=== PATIENT | female | born 1945 | race Caucasian/White ===

== ENCOUNTER 2020-03-13 09:21 | Outpatient (REF) | payer MEDICARE, SELFPAY ==
[2020-03-13 10:58] LABS: INTERNATIONAL NORM RATIO 1.7 (0.9-1.1); Prothrombin Time 20.1 SEC (10.8-13.0)
== END 2020-03-13 09:22 | disposition home or self-care (01) ==
LOC: HO.LAB 09:21
PROVIDERS: PCP Internal Medicine; Visit Provider Internal Medicine
DX: I48.91 Unspecified atrial fibrillation (principal)
CPT/HCPCS: 36415; 85610

== ENCOUNTER → 2020-03-18 10:48 | Outpatient (BNVA) | payer MEDICARE, SELFPAY | PROVIDERS: PCP Internal Medicine; Referring Provider Internal Medicine; Visit Provider Nurse Practitioner Family | DX: I48.91 Unspecified atrial fibrillation (principal); I45.10 Unspecified right bundle-branch block; R55 Syncope and collapse; I47.1 Supraventricular tachycardia; I10 Essential (primary) hypertension; Z79.01 Long term (current) use of anticoagulants | CPT/HCPCS: 99214 ==

== ENCOUNTER → 2020-03-30 09:16 | Outpatient (REF) | payer MEDICARE, SELFPAY ==
--- NOTE | 2020-03-30 09:20 | ECG_ITS ---
Hook-up date: 2020-03-30 10:22:00 Duration: 28:10:00 Test Indications: UNSPEC AFIB Medications: [id number] QRS complexes 15 Ventricular ectopics which represent <1 % of total QRS comp. 20 Supraventricular ectopics which represent <1 % of total QRS comp. * Paced QRS complexs which represent % of total QRS comp. VENTRICULAR ECTOPY 15 Isolated 0 Bigeminal Cycles 0 Couplets 0 Runs 0 Beats in Runs * Beats LONGEST at * BPM at :: -- * Beats FASTEST at * BPM at :: -- SUPRAVENTRICULAR ECTOPY 20 Isolated 0 Couplets 0 Runs 0 Beats in Runs * Beats LONGEST at * BPM at :: -- * Beats FASTEST at * BPM at :: -- HEART RATES 55 MIN at 23:32:57 2020-03-30 71 AVG 107 MAX at 10:12:03 2020-03-31 LONGEST RR 1.1760 secs at 23:36:02 2020-03-30 S-T LEVELS Channel 1 - 128 mm at 10:22:00 2020-03-30 - 128 mm at 10:22:00 2020-03-30 Channel 2 - 128 mm at 10:22:00 2020-03-30 - 128 mm at 10:22:00 2020-03-30 Channel 3 - 128 mm at 02:94:11 -- - 128 mm at 02:94:11 Basic rhythm Normal sinus rhythm No long pause or profound bradycardia Rare ectopics Patient did not report any symptoms in the diary Referred By: Fanny Castillo Overread By: MERLY CLARK MD
--- NOTE | 2020-03-30 09:20 | CA_ITS ---
Transthoracic Echocardiogram Patient (Last, First, Middle): Iliana Ochoa A Gender: Female Date of : 1945 Age: 74 Procedure Date: 03/30/2020 Procedure Type: Transthoracic Echocardiogram Location: OP Height: 167.64 cm Weight: 74.84 kg BSA: 1.84 m2 Heart Rate: bpm BP: 118 / 60 mmHg [employer] Feeder: NAVEEN Referring MD: Fanny Castillo SERVICE ORDER CLERK-Silvano Symptoms: I49.91 ATRIAL FIBRILATION Study Quality: Fair ECG Rhythm: Sinus Conclusions: - Limited echo. - Normal biventricular function. Findings Left Ventricle Normal left ventricular size and systolic function. There is moderately increased left ventricular wall thickness. The visually estimated ejection fraction is between 60-65%. There is no evidence of regional wall motion abnormalities. Diastolic function is indeterminate on the basis of available data. Spectral Doppler is indicative of an impaired relaxation filling pattern. Right Ventricle Normal right ventricular cavity size and systolic function. Prior Study Comparison No significant change compared to prior study dated: 07/07/2019. Measurements 2D Linear Measurements IVSd: 1.24 0.6-0.9/0.6-1.0 cm LVIDd: 4.57 3.9-5.3/4.2-5.9 cm LVIDd Index: 2.48 2.4-3.2/2.2-3.1 cm/m2 LVIDs: 2.81 2.0-3.6 cm LVPWd: 1.22 0.7-1.1 cm LV Mass: 262.06 67-162/88-224 g LV Mass Index: 142.43 43-95/49-115 g/m2 2D Systolic Function EF 4C: 67.70 >55% EF 2C: 64.30 >55% EF BiP: 66.20 >55% Updated in Other Vendor System with Status of Final Scott Carrillo MD electronically signed on 03/31/2020 11:20:55 AM with status of Final
== END ==
LOC: HO.CARD 09:16
PROVIDERS: Visit Provider Nurse Practitioner Family
DX: I48.91 Unspecified atrial fibrillation (principal)
CPT/HCPCS: 93226; 93308

== ENCOUNTER 2020-04-07 13:24 | Outpatient (REF) | payer MEDICARE, SELFPAY ==
--- NOTE | 2020-04-07 13:28 | MM_ITS ---
EXAMINATION: MM SCREENING DIGITAL BREAST TOMOSYNTHESIS, BILATERAL CLINICAL INFORMATION: Screening. Asymptomatic. COMPARISON: Mammography: 05/14/2019 and studies dating back to 06/09/2010. TECHNIQUE: Digital breast tomosynthesis is performed in both the craniocaudal and mediolateral oblique views along with computer-aided detection (CAD). Synthesized 2D images are generated from the tomosynthesis. FINDINGS: The breasts are extremely dense, which lowers the sensitivity of mammography (ACR BI-RADS breast composition Category d). There are stable postoperative and postradiation changes of the right breast. There are 2 stable regions of architectural distortion within the left breast likely related to previous biopsies. Within the more anterior region of scarring upper outer aspect there is a question of development of calcifications versus tomosynthesis artifact in linear lines which were not definitely seen on prior studies and which do not appear to be typical dystrophic calcifications. MM/MM tomosynthesis screening BI IMPRESSION: Question artifact versus developing calcifications about the region of architectural distortion within the left breast for which spot magnification films in craniocaudal and 90 degree mediolateral views is recommended. ASSESSMENT: BI-RADS 0: Incomplete - Need Additional Imaging Evaluation RECOMMENDATION: 1. Additional views of the left breast. 2. Targeted ultrasound if warranted after review of the additional views. 3. Radiology department staff will contact the patient for additional imaging. This patient's information was entered into a reminder system with a target due date for their next mammogram.
== END 2020-04-07 13:25 | disposition home or self-care (01) ==
LOC: HO.MAMMO 13:24
PROVIDERS: Visit Provider Internal Medicine
DX: Z12.31 Encounter for screening mammogram for malignant neoplasm of breast (principal)
CPT/HCPCS: 77063; 77067

== ENCOUNTER 2020-04-15 12:57 | Outpatient (REF) | payer MEDICARE, SELFPAY ==
--- NOTE | 2020-04-15 13:07 | MM_ITS ---
EXAMINATION: MM DIAGNOSTIC DIGITAL BREAST TOMOSYNTHESIS, LEFT CLINICAL INFORMATION: Question left breast calcifications. COMPARISON: Mammography: 04/07/2020 and studies dating back to 04/14/2011. TECHNIQUE: Digital breast tomosynthesis is performed. 2D images are generated from the tomosynthesis. The following views are obtained: Spot magnification views of the left breast in craniocaudal and 90-degree mediolateral views. FINDINGS: The breasts are extremely dense, which lowers the sensitivity of mammography (ACR BI-RADS breast composition Category d). 2-D images do not demonstrate question calcifications seen on study of 04/07/2020 and these are most likely artifactual in nature from tomosynthesis. The regions of architectural distortion that are present within the left breast are stable. Results are provided to the patient at time of visit by the technologist. MM/MM tomosynthesis added views L IMPRESSION: Stable appearance of the left breast without suspicious calcifications identified. ASSESSMENT: BI-RADS 2: Benign. RECOMMENDATION: Routine annual mammography screening due in 12 months. This patient's information was entered into a reminder system with a target due date for their next mammogram.
== END 2020-04-15 12:58 | disposition home or self-care (01) ==
LOC: HO.MAMMO 12:57
PROVIDERS: PCP Internal Medicine; Visit Provider Internal Medicine
DX: R92.1 Mammographic calcification found on diagnostic imaging of breast (principal); R92.8 Other abnormal and inconclusive findings on diagnostic imaging of breast
CPT/HCPCS: 77061; 77065

== ENCOUNTER → 2020-08-05 12:44 | Outpatient (BNVA) | payer MEDICARE, SELFPAY | PROVIDERS: PCP Internal Medicine; Visit Provider Hospitalist | DX: A31.9 Mycobacterial infection, unspecified (principal); J47.9 Bronchiectasis, uncomplicated; R91.8 Other nonspecific abnormal finding of lung field; J70.1 Chronic and other pulmonary manifestations due to radiation | CPT/HCPCS: 99202 ==

== ENCOUNTER 2020-08-19 08:06 | Outpatient (REF) | payer MEDICARE, SELFPAY ==
--- NOTE | ~2020-08-19 | CT_ITS ---
EXAMINATION: CT CHEST WITHOUT CONTRAST CLINICAL INFORMATION: Nonspecific abnormal lung findings. COMPARISON: None TECHNIQUE: Multidetector volumetric CT imaging of the chest was done. Axial MIP volume rendering provided. Sagittal and coronal reformatted images were obtained. This CT examination was performed using dose optimization techniques as appropriate, variously including the following: *Automated exposure control. *Adjustment of mA and/or kV according to patient size (this includes techniques or standardized protocols for targeted exams where dose is matched to indication/reason for exam; i.e. extremities or head). *Use of iterative reconstruction technique. DLP: 130 mGy-cm FINDINGS: POST EXCHANGE MANAGER: The lungs are hyperinflated without acute process. LUNGS: There is mild apical parenchymal scarring. The lungs are otherwise well expanded and clear of acute process. There is a 3 mm calcified nodule right upper lobe axial image 152/7, a subpleural 5 mm density right upper lobe axial image 152/70, nonspecific nodules measuring 2 mm and 3 mm axial image 206/7, intrabronchial 3 mm lesion or debris right lower lobe axial image 235/7, 5 mm subpleural nodule left upper lobe axial image 239/7, 3 mm intrabronchial debris or nodule right lower lobe axial image 271/7, 2 mm and 3 mm peripheral-based nodules left lower lobe and lingula axial image 327/7, 317/7. There is no acute consolidation or mass seen. MEDIASTINUM: The thyroid lobes are symmetrical and normal. Central trachea and the bronchi are widely patent. Heart size and the great vessels are normal caliber. No pericardial effusion seen. No abnormal size mediastinal or hilar lymph nodes seen. PLEURA: There is no pleural effusion. No pleural mass or thickening. AXILLA: Small shotty lymph nodes seen in the axilla. There is a dense left breast with mild bilateral anterior skin thickening. UPPER ABDOMEN: Visualized liver, spleen, pancreas and bilateral adrenal glands are unremarkable. OSSEOUS STRUCTURES: No lytic or sclerotic process seen. There is mild ventral spondylosis upper and mid dorsal spine. CT/CT chest wo con IMPRESSION: 1. Multiple bilateral pulmonary nodules as described above. There is some intrabronchial debris or nodules visualized. This could be secondary to bronchial inflammatory process. 2. No abnormal mediastinal or axillary lymphadenopathy seen. 3. Dense left breast could be secondary to previous surgical intervention or radiation changes. There is bilateral anterior skin thickening around the areola.
== END 2020-08-19 08:07 | disposition home or self-care (01) ==
LOC: HO.CT 08:06
PROVIDERS: Visit Provider Physician Assistant Medical
DX: R91.8 Other nonspecific abnormal finding of lung field (principal)
CPT/HCPCS: 71250

== ENCOUNTER 2020-09-13 09:54 | Outpatient (REF) | payer MEDICARE, SELFPAY ==
--- NOTE | 2020-09-13 14:27 | PFT_ITS ---
Forced vital capacity and FEV1 are slightly decreased. [id number] also slightly decreased and MVV is normal. Post bronchodilator therapy, there is only minimal improvement in FVC and [id number]. Total lung capacity and residual volume normal. Diffusion capacity moderately decreased. CONCLUSION: There is no evidence of restrictive pulmonary disorder. There is mild small airway obstructive disorder with mild improvement after bronchodilator therapy. Diffusion capacity is moderately decreased somewhat out of proportion to the other findings. This may be due to pulmonary emphysema or presence of nonpulmonary factors. Clinical correlation is recommended. MD ANGELA Hull/MODL / [id number]
== END 2020-09-13 09:55 | disposition home or self-care (01) ==
LOC: HO.RESP 09:54
PROVIDERS: PCP Internal Medicine; Visit Provider Hospitalist
DX: J47.9 Bronchiectasis, uncomplicated (principal)
CPT/HCPCS: 94060; 94727; 94729; 99212

== ENCOUNTER → 2020-10-21 10:46 | Outpatient (BNVA) | payer MEDICARE, SELFPAY | PROVIDERS: PCP Internal Medicine; Visit Provider Hospitalist | DX: J70.1 Chronic and other pulmonary manifestations due to radiation (principal); A31.9 Mycobacterial infection, unspecified; J47.9 Bronchiectasis, uncomplicated; R91.8 Other nonspecific abnormal finding of lung field | CPT/HCPCS: 99212 ==

== ENCOUNTER 2020-11-30 10:15 | Outpatient (REF) | payer MEDICARE, SELFPAY ==
--- NOTE | ~2020-11-30 | MR_ITS ---
EXAMINATION: MR BREAST WITHOUT AND WITH CONTRAST, BILATERAL CLINICAL INFORMATION: Personal history of right breast carcinoma, status post lumpectomy in 2006. COMPARISON: Bilateral mammogram 04/07/2020, bilateral breast MRI 04/14/2011, 10/08/2018 and 04/21/2019 TECHNIQUE: Imaging was performed with a dedicated breast coil. Prior to the administration of contrast, bilateral axial T1 and bilateral axial T2 weighted sequences were obtained. After the uneventful administration of?7 mL of Gadavist, dynamic contrast-enhanced VIBRANT series through the breasts in the axial plane were performed. Subtracted images were performed and reviewed. A delayed sagittal sequence through both breasts was acquired. Additionally, CAD post-processing, including maximum intensity projections, 3-D reconstructions and kinetic analysis, were performed an independent workstation and reviewed by the interpreting radiologist is a portion of this exam. FINDINGS: The breast tissue is composed of heterogeneously dense fibroglandular tissue. There is a greater amount of residual dense fibroglandular tissue present on the left. There is pronounced, prominently progressive type background parenchymal enhancement on the left which is greater than on prior exams. Mild background enhancement is present on the right. LEFT BREAST: There are areas of postsurgical distortion which are stable in appearance. There is a T2 isointense round enhancing nodule in the central breast, middle depth measuring 0.3 cm, unchanged. Areas of patchy nonmasslike enhancement are present on the left which are greater than on the previous exam, however are suggestive of increased parenchymal enhancement. There is no area of enhancement with suspicious kinetics or suspicious morphology. There is no duct dilatation or ductal type enhancement present. No skin thickening is seen. RIGHT BREAST: There are postsurgical changes in the posterior lateral and anteromedial breast. There is no suspicious mass, focal suspicious nonmasslike enhancement, duct dilatation or ductal type enhancement. There has been no interval change. There is no suspicious internal mammary chain or axillary adenopathy. Limited views of the chest and abdomen are unremarkable. MR/MR breast BI wo/w con IMPRESSION: No MR specific evidence of malignancy. Interval increase in left-sided background parenchymal enhancement which has a somewhat patchy appearance. No dominant suspicious area of abnormality is seen on the left. Close interval follow-up on MRI is recommended. ASSESSMENT: LEFT BREAST: BI-RADS 3, probably benign. RIGHT BREAST: BI-RADS 2, benign. RECOMMENDATIONS: Repeat MRI in 6-12 months to assess increasing nonmasslike and background parenchymal enhancement on the left for stability. The patient will be due for bilateral mammogram in March 2020.
[2020-11-30 10:36] LABS: Blood Urea Nitrogen 18 mg/dL (9-16); Estimated Glomerular Filt Rate > 60
== END 2020-11-30 10:16 | disposition home or self-care (01) ==
LOC: HO.MRI 10:15
PROVIDERS: Visit Provider Surgery
DX: C50.911 Malignant neoplasm of unspecified site of right female breast (principal); Z80.3 Family history of malignant neoplasm of breast
CPT/HCPCS: 36415; 77049; 82565; 84520; A9585

== ENCOUNTER → 2020-12-14 09:57 | Outpatient (BNVA) | payer MEDICARE, SELFPAY | PROVIDERS: PCP Internal Medicine; Visit Provider Surgery | DX: C50.911 Malignant neoplasm of unspecified site of right female breast (principal) | CPT/HCPCS: 99212 ==

== ENCOUNTER → 2020-12-16 12:41 | Outpatient (BNVA) | payer MEDICARE, SELFPAY | PROVIDERS: PCP Internal Medicine; Referring Provider Internal Medicine; Visit Provider Internal Medicine Cardiovascular Disease | DX: J70.1 Chronic and other pulmonary manifestations due to radiation (principal); I10 Essential (primary) hypertension; I45.19 Other right bundle-branch block; I48.0 Paroxysmal atrial fibrillation; I47.1 Supraventricular tachycardia; R55 Syncope and collapse; C50.911 Malignant neoplasm of unspecified site of right female breast | CPT/HCPCS: 93005; 99212 ==

== ENCOUNTER 2021-04-20 09:50 | Outpatient (REF) | payer MEDICARE, SELFPAY ==
--- NOTE | ~2021-04-20 | MM_ITS ---
EXAMINATION: MM SCREENING DIGITAL BREAST TOMOSYNTHESIS, BILATERAL CLINICAL INFORMATION: Screening. Asymptomatic. Remote history right lumpectomy for breast cancer, 2008. Benign left excisional biopsy 2008. COMPARISON: Mammography: 04/15/2020, 04/07/2020, 05/14/2019, 08/19/2018, 07/23/2017, MRI breasts 11/30/2020. TECHNIQUE: Digital breast tomosynthesis is performed in both the craniocaudal and mediolateral oblique views along with computer-aided detection (CAD). Synthesized 2D images are generated from the tomosynthesis. Additional exaggerated right CC view is provided. FINDINGS: The breasts are heterogeneously dense, which may obscure small masses (ACR BI-RADS breast composition Category c). Parenchymal pattern is similar to prior studies. There is no developing density or interval mass. Old scarring again noted anterior left breast. There are 2 biopsy clip markers again seen left breast central mid 3:00 and anterior inferior medial quadrant. There are post lumpectomy changes again seen on the right with reduced breast size and mild scarring and old dystrophic calcifications. No significant changes. MM/MM tomosynthesis screening BI IMPRESSION: No significant changes from prior studies. ASSESSMENT: BI-RADS 2: Benign RECOMMENDATION: Routine annual mammography screening. Comment: MR exam 11/30/2020 recommends repeat breast MRI in 6-12 months to assess probable benign non masslike and background parenchymal enhancement on the left for stability. This patient's information was entered into a reminder system with a target due date for their next mammogram.
== END 2021-04-20 09:51 | disposition home or self-care (01) ==
LOC: HO.MAMMO 09:50
PROVIDERS: Visit Provider Internal Medicine
DX: Z12.31 Encounter for screening mammogram for malignant neoplasm of breast (principal)
CPT/HCPCS: 77063; 77067

== ENCOUNTER → 2021-04-28 10:39 | Outpatient (BNVA) | payer MEDICARE, SELFPAY | PROVIDERS: PCP Internal Medicine; Visit Provider Hospitalist | DX: J70.1 Chronic and other pulmonary manifestations due to radiation (principal); J47.9 Bronchiectasis, uncomplicated; R91.8 Other nonspecific abnormal finding of lung field; A31.9 Mycobacterial infection, unspecified | CPT/HCPCS: 99212 ==

== ENCOUNTER 2021-05-09 13:52 | Outpatient (REF) | payer MEDICARE, SELFPAY | END 2021-05-09 13:53 | disposition home or self-care (01) | LOC: HO.LNP 13:52 | PROVIDERS: Visit Provider Hospitalist | DX: A31.9 Mycobacterial infection, unspecified (principal); J47.9 Bronchiectasis, uncomplicated | CPT/HCPCS: 87070; 87116; 87205 ==

== ENCOUNTER 2021-05-27 10:29 | Outpatient (REF) | payer MEDICARE, SELFPAY ==
[2021-05-27 11:28] LABS: Blood Urea Nitrogen 15 mg/dL (9-16); Estimated Glomerular Filt Rate > 60
== END 2021-05-27 10:30 | disposition home or self-care (01) ==
LOC: HO.LAB 10:29
PROVIDERS: PCP Internal Medicine; Visit Provider Surgery
DX: C50.911 Malignant neoplasm of unspecified site of right female breast (principal); Z80.3 Family history of malignant neoplasm of breast
CPT/HCPCS: 36415; 82565; 84520

== ENCOUNTER 2021-05-30 09:25 | Outpatient (REF) | payer MEDICARE, SELFPAY ==
--- NOTE | ~2021-05-30 | MR_ITS ---
EXAMINATION: MR BREAST WITHOUT AND WITH CONTRAST, BILATERAL CLINICAL INFORMATION: High-risk screening. History of right breast cancer status post lumpectomy. History of left breast excisional biopsy. COMPARISON: MRI 11/30/2020, 04/21/2019 TECHNIQUE: Imaging was performed with a dedicated breast coil. Prior to the administration of contrast, bilateral axial T1 and bilateral axial T2 weighted sequences were obtained. After the uneventful administration of?7 mL of Gadavist, dynamic contrast-enhanced VIBRANT series through the breasts in the axial plane were performed. Subtracted images were performed and reviewed. A delayed sagittal sequence through both breasts was acquired. Additionally, CAD post-processing, including maximum intensity projections, 3-D reconstructions and kinetic analysis, were performed an independent workstation and reviewed by the interpreting radiologist is a portion of this exam. FINDINGS: The patient's fibroglandular tissue demonstrates moderate background enhancement. LEFT BREAST: Biopsy clip artifact with associated nonmass enhancement at 6:00 position of the mid left breast is less conspicuous compared to the prebiopsy imaging can system the benign biopsy result. Stable left lateral nipple deviation and postexcisional changes. No new suspicious masslike or non-masslike enhancement. No abnormal skin thickening or nipple retraction. No abnormal architectural distortion. Review of the T2 weighted images demonstrates no fibrocystic changes or dilated ducts. Review of kinetic images reveals no additional findings. RIGHT BREAST: Stable architectural distortion in the upper inner quadrant of the site of previous lumpectomy. Stable anterior skin thickening. No suspicious masslike or non-masslike enhancement. No abnormal skin thickening or nipple retraction. No abnormal architectural distortion. Review of the T2 weighted images demonstrates no fibrocystic changes or dilated ducts. Review of kinetic images reveals no additional findings. There is no suspicious internal mammary chain or axillary adenopathy. Limited views of the chest and abdomen are unremarkable. MR/MR breast BI wo/w con IMPRESSION: No MR specific evidence of malignancy. ASSESSMENT: LEFT BREAST: BI-RADS 2 - Benign Findings. RIGHT BREAST: BI-RADS 2 - Benign Findings. RECOMMENDATIONS: Clinical follow-up. Continued annual mammographic surveillance. Further breast MRI as risk factors dictate.
== END 2021-05-30 09:26 | disposition home or self-care (01) ==
LOC: HO.MRI 09:25
PROVIDERS: Visit Provider Surgery
DX: C50.911 Malignant neoplasm of unspecified site of right female breast (principal); Z80.3 Family history of malignant neoplasm of breast
CPT/HCPCS: 77049; A9585

== ENCOUNTER → 2021-06-23 08:44 | Outpatient (BNVA) | payer MEDICARE, SELFPAY | PROVIDERS: PCP Internal Medicine; Visit Provider Surgery | DX: I48.0 Paroxysmal atrial fibrillation (principal); I47.1 Supraventricular tachycardia; R55 Syncope and collapse; C50.911 Malignant neoplasm of unspecified site of right female breast | CPT/HCPCS: 99212 ==

== ENCOUNTER 2021-07-05 14:12 | Outpatient (REF) | payer MEDICARE, SELFPAY ==
--- NOTE | ~2021-07-05 | MM_ITS ---
EXAMINATION: BONE DENSITOMETRY CLINICAL INDICATION: Osteoporosis. COMPARISON: Previous BD dated 04/13/2017, spine and baseline BD dated 04/05/2010. TECHNIQUE: Using a [employer] DXA System (software version: 13.1) manufactured by [employer], dual-energy x-ray absorptiometry was performed of the lumbar spine and right hip. The images are of good technical quality. Summary results are attached. FINDINGS: AP SPINE L1-L4: Current: BMD 1.279 g/cm2, Z-score 2.3, T-score 0.8, normal, 9.1% increase from previous, 3.5% increase from baseline (<5% change is not significant). Prior: BMD 1.172 g/cm2. Baseline: BMD 1.236 g/cm2. RIGHT FEMUR, NECK: Current: BMD 0.976 g/cm2, Z-score 1.3, T-score -0.4, normal. Baseline: BMD 0.884 g/cm2. RIGHT FEMUR, TOTAL: Current: BMD 0.954 g/cm2, Z-score 1.2, T-score -0.4, normal, 3.0% increase from baseline (<5% change is not significant). Baseline: BMD 0.926 g/cm2. IDENTIFIED RISK FACTORS: Early menopause, secondary osteoporosis. HISTORY OF FRACTURE: None listed. MEDICATIONS: Vitamin D. MM/XR DEXA axial skeleton IMPRESSION: 1. DIAGNOSIS: Normal bone density based on the lowest T-score value of -0.4 in the femoral neck and total femur applying World Health Organization criteria. 2. 10-YEAR FRACTURE RISK PREDICTION, FRAX: Major osteoporotic fracture (clinical spine, forearm, hip or shoulder) 8.6%. Hip fracture 1.0%. 3. Treatment Recommendations: NOF guidelines recommend consideration for treatment in postmenopausal women and men age 50 and older presenting with the following: -A hip or vertebral (clinical or morphometric) fracture. -T-score less than or equal to -2.5 at the femoral neck or spine after appropriate evaluation to exclude secondary causes. -Low bone mass at the hip or spine and a 10-year fracture probability by FRAX of greater than or equal to 3% for hip fracture or greater than or equal to 20% for major osteoporotic fracture based on the [place] adapted WHO algorithm. 4. Other Recommendations: All treatment decisions require clinical judgment and consideration of individual patient factors, including patient preferences, comorbidities, previous drug use, risk factors not captured in the FRAX model (e.g. frailty, falls, vitamin D deficiency, increased bone turnover, interval significant decline in bone density) and possible under or overestimation of fracture risk by FRAX. FUTURE SCAN RECOMMENDATION: People with diagnosed cases of osteoporosis or at high risk for fracture should have regular bone mineral density tests. For patients eligible for Medicare, routine testing is allowed once every 2 years. The testing frequency can be increased to one year for patients who have rapidly progressing disease, those who are receiving or discontinuing medical therapy to restore bone mass, or have additional risk factors.
== END 2021-07-05 14:13 | disposition home or self-care (01) ==
LOC: HO.MAMMO 14:12
PROVIDERS: Visit Provider Internal Medicine
DX: Z13.820 Encounter for screening for osteoporosis (principal); M81.6 Localized osteoporosis [Lequesne]; Z78.0 Asymptomatic menopausal state; Z79.899 Other long term (current) drug therapy
CPT/HCPCS: 77080

== ENCOUNTER 2021-08-11 10:36 | Outpatient (REF) | payer MEDICARE, SELFPAY ==
--- NOTE | ~2021-08-11 | CT_ITS ---
EXAMINATION: CT CHEST WITHOUT CONTRAST CLINICAL INFORMATION: Follow-up pulmonary nodules and bronchiectasis COMPARISON: Previous chest CT most recent August 2020 TECHNIQUE: Multidetector volumetric CT imaging of the chest was done. Axial MIP volume rendering provided. Sagittal and coronal reformatted images were obtained. This CT examination was performed using dose optimization techniques as appropriate, variously including the following: *Automated exposure control *Adjustment of mA and/or kV according to patient size (this includes techniques or standardized protocols for targeted exams where dose is matched to indication/reason for exam; i.e. extremities or head) *Use of iterative reconstruction technique DLP: 128 mGy-cm FINDINGS: LUNGS: There is biapical pleural parenchymal scarring. There is bilateral upper lobe and right middle lobe bronchiectasis, bronchial wall thickening and bronchial soft tissue opacification or mucus plugging. This appears increased in the anterior segment of the left upper lobe where there are new pulmonary nodules, largest measuring 5 mm nodule axial image 279 series 5. There are mild changes of airways disease seen in the lateral segment of the right lower lobe as well. There are increased peripheral reticular markings seen in the anterior right upper and right middle lobes probably related to previous chest wall radiation. MEDIASTINUM: There is a trace pericardial effusion that is stable. The mediastinum is otherwise normal. The mediastinum is normal. PLEURA: There is no pleural effusion. No pleural mass or thickening. AXILLA: No enlarged lymph nodes or chest wall mass is seen. There is skin thickening of the right breast that appears unchanged. UPPER ABDOMEN: Unremarkable. OSSEOUS STRUCTURES: There are degenerative changes of the spine. CT/CT chest wo con IMPRESSION: Increasing airways disease seen in the anterior left upper lobe. Otherwise no change from August 2020 exam. Fleischner guidelines were followed.
== END 2021-08-11 10:37 | disposition home or self-care (01) ==
LOC: HO.CT 10:36
PROVIDERS: PCP Internal Medicine; Visit Provider Hospitalist
DX: R91.8 Other nonspecific abnormal finding of lung field (principal); J47.9 Bronchiectasis, uncomplicated; C50.911 Malignant neoplasm of unspecified site of right female breast
CPT/HCPCS: 71250

== ENCOUNTER → 2021-09-21 09:59 | Outpatient (BNVA) | payer MEDICARE, SELFPAY | PROVIDERS: PCP Internal Medicine; Visit Provider Hospitalist | DX: J70.1 Chronic and other pulmonary manifestations due to radiation (principal); J47.9 Bronchiectasis, uncomplicated; R91.8 Other nonspecific abnormal finding of lung field; A31.9 Mycobacterial infection, unspecified | CPT/HCPCS: 99212 ==

== ENCOUNTER → 2021-12-29 09:25 | Outpatient (BNVA) | payer MEDICARE, SELFPAY | PROVIDERS: PCP Internal Medicine; Referring Provider Internal Medicine; Visit Provider Internal Medicine Cardiovascular Disease | DX: I48.0 Paroxysmal atrial fibrillation (principal); Z79.01 Long term (current) use of anticoagulants; Z45.018 Encounter for adjustment and management of other part of cardiac pacemaker | CPT/HCPCS: 93280; 99212 ==

== ENCOUNTER 2022-03-27 08:51 | Outpatient (REF) | payer MEDICARE, SELFPAY ==
--- NOTE | 2022-03-27 16:28 | PFT_ITS ---
FLOWS: FEV1 77% of predicted at 1.75 L. FVC 82% of predicted at 2.48 L. FEV1 to FVC ratio of 0.71. No bronchodilator response. LUNG VOLUMES: Total lung capacity 83% of predicted at 4.69 L. Residual volume 94% of predicted at 2.28 L. Slow vital capacity 81% of predicted at 2.41 L. Expiratory reserve volume 37% of predicted at 0.26 L. Diffusion capacity is mildly decreased. IMPRESSION: No obstructive nor restrictive ventilatory defect. No bronchodilator response. Decreased diffusion capacity suggests emphysema. Guru Verdin MD AP/MODL / [id number]
== END 2022-03-27 08:52 | disposition home or self-care (01) ==
LOC: HO.RESP 08:51
PROVIDERS: PCP Internal Medicine; Visit Provider Hospitalist
DX: J47.9 Bronchiectasis, uncomplicated (principal)
CPT/HCPCS: 94060; 94727; 94729

== ENCOUNTER → 2022-04-19 09:48 | Outpatient (BNVA) | payer MEDICARE, SELFPAY | PROVIDERS: PCP Internal Medicine; Visit Provider Hospitalist | DX: J70.1 Chronic and other pulmonary manifestations due to radiation (principal); A31.9 Mycobacterial infection, unspecified; J47.9 Bronchiectasis, uncomplicated; R91.8 Other nonspecific abnormal finding of lung field; Z85.3 Personal history of malignant neoplasm of breast; Z92.3 Personal history of irradiation | CPT/HCPCS: 99212 ==

== ENCOUNTER 2022-05-09 10:32 | Outpatient (REF) | payer MEDICARE, SELFPAY ==
--- NOTE | ~2022-05-09 | MM_ITS ---
EXAMINATION: MM SCREENING DIGITAL BREAST TOMOSYNTHESIS, BILATERAL CLINICAL INFORMATION: Screening. Asymptomatic. Right lumpectomy for breast cancer, 2009. Benign left excisional biopsy, 2008. COMPARISON: Mammography: 04/20/2021, 04/15/2020, 04/07/2020, 05/14/2019, 08/19/2018; MRI breasts 05/30/2021. TECHNIQUE: Digital breast tomosynthesis is performed in both the craniocaudal and mediolateral oblique views along with computer-aided detection (CAD). Synthesized 2D images are generated from the tomosynthesis. FINDINGS: The breasts are heterogeneously dense, which may obscure small masses (ACR BI-RADS breast composition Category c). Parenchymal pattern is similar to prior studies. There are postsurgical changes on the right with mild reduced breast size and some scattered regional dystrophic calcifications upper outer quadrant and right axillary clips. Left breast has 2 biopsy clip markers mid central 3:00 and lower inner anterior breast. There is a small stable circumscribed nodule again seen mid 8:00 left breast. There is no significant mass or developing density or architectural abnormality. No abnormal calcifications. Pacemaker generator overlies and partly obscures left axilla on MLO view. No significant changes. MM/MM tomosynthesis screening BI IMPRESSION: No significant changes from prior studies. ASSESSMENT: BI-RADS 2: Benign RECOMMENDATION: Routine annual mammography screening. This patient's information was entered into a reminder system with a target due date for their next mammogram.
== END 2022-05-09 10:33 | disposition home or self-care (01) ==
LOC: HO.MAMMO 10:32
PROVIDERS: PCP Internal Medicine; Visit Provider Internal Medicine
DX: Z12.31 Encounter for screening mammogram for malignant neoplasm of breast (principal)
CPT/HCPCS: 77063; 77067

== ENCOUNTER → 2022-06-27 08:50 | Outpatient (BNVA) | payer MEDICARE, SELFPAY | PROVIDERS: PCP Internal Medicine; Referring Provider Internal Medicine; Visit Provider Surgery | DX: C50.911 Malignant neoplasm of unspecified site of right female breast (principal) | CPT/HCPCS: 99212 ==

== ENCOUNTER → 2022-07-03 09:14 | Outpatient (BNVA) | payer MEDICARE, SELFPAY | PROVIDERS: PCP Internal Medicine; Referring Provider Internal Medicine; Visit Provider Internal Medicine Cardiovascular Disease | DX: I47.1 Supraventricular tachycardia (principal); I48.0 Paroxysmal atrial fibrillation; Z95.0 Presence of cardiac pacemaker | CPT/HCPCS: 93005; 93280; 99212 ==

== ENCOUNTER 2022-09-26 09:59 | Outpatient (REF) | payer MEDICARE, SELFPAY ==
--- NOTE | ~2022-09-26 | CT_ITS ---
EXAMINATION: CT CHEST WITHOUT CONTRAST CLINICAL INFORMATION: Bronchiectasis COMPARISON: Previous chest CT most recent August 2021 TECHNIQUE: Multidetector volumetric CT imaging of the chest was done. Axial MIP volume rendering provided. Sagittal and coronal reformatted images were obtained. This CT examination was performed using dose optimization techniques as appropriate, variously including the following: *Automated exposure control *Adjustment of mA and/or kV according to patient size (this includes techniques or standardized protocols for targeted exams where dose is matched to indication/reason for exam; i.e. extremities or head) *Use of iterative reconstruction technique DLP: 126 mGy-cm FINDINGS: FLOOR CLERK: LUNGS: There is mild biapical pleural parenchymal scarring. There is scattered areas of bronchiectasis, greatest in the right middle and right upper lobes. There is bronchial soft tissue opacification plugging seen in the right middle lobe. This does not appear appreciably changed. There are increased clustered peribronchial nodules seen in the anterior segment of the left upper lobe peripheral lateral left lower lobe. There are numerous additional areas of small scattered peribronchial nodules that are otherwise unchanged. No suspicious pulmonary nodule. No endotracheal or central endobronchial lesion. MEDIASTINUM: Normal heart size. Trace pericardial effusion that is stable. No enlarged hilar or mediastinal lymph nodes. Normal caliber thoracic aorta. CORONARY ARTERY CALCIFICATION: None visualized on this study. PLEURA: There is no pleural effusion. No pleural mass or thickening. AXILLA: No enlarged axillary lymph nodes. Stable postsurgical changes to the right breast. Asymmetric increased density of the left breast compared to the right similar to previous exams. New left subclavian dual chamber pacemaker. UPPER ABDOMEN: Unremarkable. OSSEOUS STRUCTURES: Degenerative changes of the spine. CT/CT chest wo IV con IMPRESSION: Stable bronchiectasis, bronchial soft tissue opacification or mucus plugging, greatest in the right middle and upper lobes. Slight interval increase in peribronchial nodules in the left lung. New left subclavian chamber pacemaker. Fleischner guidelines were followed.
== END 2022-09-26 10:00 | disposition home or self-care (01) ==
LOC: HO.CT 09:59
PROVIDERS: PCP Internal Medicine; Visit Provider Hospitalist
DX: J47.9 Bronchiectasis, uncomplicated (principal)
CPT/HCPCS: 71250

== ENCOUNTER → 2022-10-23 13:51 | Outpatient (BNVA) | payer MEDICARE, SELFPAY | PROVIDERS: PCP Internal Medicine; Visit Provider Hospitalist | DX: J70.1 Chronic and other pulmonary manifestations due to radiation (principal); J47.9 Bronchiectasis, uncomplicated; R91.8 Other nonspecific abnormal finding of lung field; U09.9 Post COVID-19 condition, unspecified; A31.9 Mycobacterial infection, unspecified | CPT/HCPCS: 99212 ==

== ENCOUNTER → 2022-12-14 08:34 | Outpatient (REF) | payer MEDICARE, SELFPAY | LOC: HO.CARD 08:34 | PROVIDERS: PCP Internal Medicine; Visit Provider Internal Medicine Cardiovascular Disease | DX: I48.0 Paroxysmal atrial fibrillation (principal) | CPT/HCPCS: 93306; 93356 ==

== ENCOUNTER 2022-12-28 08:35 | Outpatient (AMB) | payer MEDICARE, SELFPAY ==
--- NOTE | 2022-12-28 08:43 | A.OFFVIS_ITS ---
Intake Vital Signs 12/28/22 08:44 Height 5 ft 6 in Weight 156 lb 8.451 oz BMI 25.3 BP 118/76 Blood Pressure Location Lt brachial Position Sitting Pulse 70 Intake Visit Reasons: 6 month f/u w/pacer check Intake Note: 6 month follow-up with pacer check has coronary CTA this afternoon Sanitation Manager Required: No Allergies lisinopril Allergy (Intermediate, Verified 10/23/22 14:03) cough Sulfa (Sulfonamide Antibiotics) Allergy (Intermediate, Verified 10/23/22 14:03) hives/swelling trimethoprim Allergy (Intermediate, Verified 10/23/22 14:03) RASH codeine Allergy (Mild, Verified 10/23/22 14:03) HEADACHES, headache Gadolinium-Containing Contrast Medi [Gadolinium-Containing Agents] Allergy (Mild, Verified 10/23/22 14:03) 14cc of Multihance meperidine Adverse Reaction (Mild, Verified 10/23/22 14:03) NAUSEA/VOMITING Latex Gloves Allergy (Intermediate, Uncoded 10/23/22 14:03) hives Medication List - Last Reconciled 12/28/22 by Piyush Vilchis MD apixaban 5 mg PO BID atorvastatin 20 mg PO DAILY benzonatate 200 mg PO BID PRN 30 days cholecalciferol (vitamin D3) 25 mcg PO DAILY escitalopram oxalate 10 mg PO DAILY losartan 100 mg PO DAILY omeprazole 20 mg PO DAILY propranolol ER 80 mg PO DAILY vitamins A,C,Z-kfby-waqrnt 4,296 mcg-226 mg-90 mg (PreserVision AREDS) 1 cap PO BID HPI HPI Comments History of Present Illness Details Iliana comes for follow-up. Recent echocardiogram concerning for possible septal puncture of the RV lead. She has been evaluated by EPS and is to undergo CT scan today. There is been no change in her pacemaker function. She says she still feels some episode of atrial fibrillation although there is no correlation to the pacer telemetry. She is very active. Denies any other cardiac symptoms. Denies any shortness of breath, orthopnea, PND. No bleeding issues or neurologic events. Can use to exertional shortness of breath that is unchanged. No orthopnea, PND. 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) History of total right hip replacement (11/02/21) Hx of knee surgery (~2010) Family History Father Cancer Afib Mother Cancer HOCM (hypertrophic obstructive cardiomyopathy) Social History Household Members: Family Housing: House Alcohol intake: current Alcohol intake frequency: a few times a week Alcohol type: wine Patient Tobacco Use Status: Never used Tobacco Review of Systems Const Denies chills, Denies fatigue, Denies fever(s), Denies frequent falls, Denies weakness, Denies weight gain and Denies weight loss ENT Denies dizziness Card Denies chest pain, Denies leg edema, Denies lightheadedness, Denies palpitations, Denies dyspnea, Denies dyspnea on exertion, Denies orthopnea and Denies other (loss of consciousness) Resp Denies cough, Denies dyspnea and Denies dyspnea on exertion GI Denies hematochezia and Denies change in stool character Musc Denies abnormal gait, Denies muscle weakness, Denies numbness, Denies radiating pain into limb and Denies tingling Neuro Denies abnormal gait, Denies dizziness, Denies frequent falls, Denies numbness, Denies tingling and Denies weakness Endo Denies fatigue and Denies palpitations Physical Exam Vital Signs: Last Vital Signs Pulse 70 12/28/22 08:44 BP 118/76 12/28/22 08:44 BMI result Body Mass Index 25.3 Const General: cooperative, comfortable, no acute distress, alert, awake and well groomed Nutritional Appearance: average body habitus Orientation/consciousness: patient oriented x3 Limitations: no limitations Neck Neck: Yes trachea midline, Yes supple and Yes no JVD Chest Chest palpation & inspection: other (Pacemaker pocket is benign) Resp Effort & Inspection: normal respiratory effort Auscultation: clear to auscultation bilaterally and diminished lung sounds on the right throughout Cardio Jugular venous distension: no JVD Palpation: normal PMI Rate: regular rate Rhythm: regular rhythm Heart sounds: S1 normal heart sound present and S2 normal heart sound present GI Auscultation: normal bowel sounds Skin General skin exam: no rashes or lesions noted Neuro General: patient oriented x3 and no focal motor deficits Extrem General: Yes no clubbing, cyanosis or edema Office Procedures Cardiac Device Check Cardiac Device Check Details: Dual-chamber Medtronic pacemaker in place. Programmed in MVP mode with rate drop response. Right ventricular lead impedance is stable and in normal range. RV pacing thresholds excellent and reprogrammed to enhance battery life. Right atrial pacing thresholds excellent and reprogrammed to enhance battery life. Right atrial pacing lead impedance is also stable and in normal range. No arrhythmias detected. Atrial ventricular sensing is adequate. Battery life is excellent. [id number]-[id number] Cardiac Device Check, pacemaker dual lead Procedure code (CPT) selection complete Assessment & Plan Assessment & Plan (1) Paroxysmal atrial fibrillation: Comment: No prior history of atrial fibrillation. She underwent a total hip replacement on 02/10 and was discharged on 02/11. That evening she had a syncopal event, EMS was called. Her EKG showed atrial fibrillation with rapid ventricular response. She was managed medically and converted to normal sinus rhythm. She was started on anticoagulation discharged the following day. She has had no known recurrence of atrial fibrillation. She denies any chest pains or heart palpitations. Chads Vasc score of 3 with age, female, hypertension. She is now on Eliquis for anticoagulation. She continues on her usual propanolol which was not changed in the setting of the AFib. Will order Holter monitor to assess for recurrence of AFib or other arrhythmia. Since she had no warning prior to her syncopal event will check a limited echo to reassess EF. Last echo done 07/07/2019 shows EF 60-65%, mild AR, mild MR, [id number] TR. preop nuclear stress test done 01/21/2020 shows no ischemia, EF greater than 75%. Emergency care if she has any syncopal events Code(s): I48.0 - Paroxysmal atrial fibrillation Plan: Patient with paroxysmal atrial fibrillation without any obvious significant recurrence noted. Doing well from cardiac perspective. Continue full oral anticoagulation, currently on Eliquis 5 mg b.i.d.. Semi annual renal function test should be pursued. Continue aggressive blood pressure control which is currently well optimized. Recent echocardiogram shows preserved LV systolic function. (2) Cardiac pacemaker in situ: Comment: Dual-chamber Medtronic pacemaker placed in October of 2021 for post hip surgery sinus pause Code(s): Z95.0 - Presence of cardiac pacemaker Plan: Cardiac pacemaker in-situ for postoperative sinus pause. She had left bundle- branch block pacing done on the interventricular septum and there is concern for lead perforation through the interventricular septum. Although pacemaker function appears normal and the lead impedance is within normal limits, could be side lobe artefact on echocardiogram. She is scheduled to undergo CT scan of the chest today. Will follow-up with the results. Will continue monitor remotely every 3 months. (3) Vasovagal syncope: Comment: history of vasovagal syncope with symptoms prior to events. Now with syncopal event as above with no warning sign. Updating echocardiogram and Holter Code(s): R55 - Syncope and collapse Plan: Prior history of vasovagal syncope with current pacemaker setting on a rate drop response. He she has not had any significant symptoms. Continue maintain adequate hydration. Continue propranolol therapy. Avoid triggering symptoms. Will follow up in the clinic in 6 months time, sooner p.r.n.. Thank you for allowing me to partake in her care Coding Level of Care Code Est Pt Level 4 (83099) Diagnoses Paroxysmal atrial fibrillation I48.0 Cardiac pacemaker in situ Z95.0 Vasovagal syncope R55 CPT Codes Cardiac Device Check - Cardiac Device 2: [id number] Cardiac Device Check, pacemaker dual lead ([id number])
[2022-12-28 08:44] VITALS: BP 118/76; PULSE 70; BMI 25.3
== END 2022-12-28 09:01 | disposition home or self-care (01) ==
PROVIDERS: Visit Provider Internal Medicine Cardiovascular Disease
DX: I48.0 Paroxysmal atrial fibrillation (principal); Z95.0 Presence of cardiac pacemaker; R55 Syncope and collapse
CPT/HCPCS: 93280; 99214

== ENCOUNTER → 2022-12-28 08:35 | Outpatient (BNVA) | payer MEDICARE, SELFPAY | PROVIDERS: Visit Provider Internal Medicine Cardiovascular Disease | DX: Z45.018 Encounter for adjustment and management of other part of cardiac pacemaker (principal); I48.0 Paroxysmal atrial fibrillation; R55 Syncope and collapse | CPT/HCPCS: 93280; 99212 ==

== ENCOUNTER 2023-02-02 12:51 | Outpatient (AMB) | payer MEDICARE, SELFPAY ==
[2023-02-02 12:58] VITALS: BP 128/60; PULSE 69; O2SAT 96; BMI 25.3
--- NOTE | 2023-02-02 12:58 | A.OFFVIS_ITS ---
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 Allergies lisinopril Allergy (Intermediate, Verified 02/02/23 13:01) cough Sulfa (Sulfonamide Antibiotics) Allergy (Intermediate, Verified 02/02/23 13:01) hives/swelling trimethoprim Allergy (Intermediate, Verified 02/02/23 13:01) RASH codeine Allergy (Mild, Verified 02/02/23 13:01) HEADACHES, headache Gadolinium-Containing Contrast Medi [Gadolinium-Containing Agents] Allergy (Mild, Verified 02/02/23 13:01) 14cc of Multihance meperidine Adverse Reaction (Mild, Verified 02/02/23 13:01) NAUSEA/VOMITING Latex Gloves Allergy (Intermediate, Uncoded 02/02/23 13:01) hives HPI HPI Comments History of Present Illness Details The patient is a 77-year-old woman with a known history of breast cancer status post radiation in addition to non tuberculosis mycobacteria infection and also history of bronchiectasis. She has also had pulmonary nodules. For the last several years she has been taking care of her who had been very ill for many years. Ultimately went on hospice care and he did pass away the end of May of 2020. In the meantime sometime in the fall of she did have a hip replacement. The surgery very well and she recovered very well. Unfortunately, when she went home she went to the bathroom at night and she felt well initially but then she syncopized hurting her head and causing her to have a laceration on her head. As part of workup at [facility] she did have a CT scan of the chest. It appeared that she did have the underlying bronchiectasis in the radiation noted before. However, they also documented a 1 cm nodular density in the right hemithorax. We were able to look back at previous CT scans that she has had back in 2016 at [facility] where that nodular density was not present. It may be indeed some mucus plugging due to her significant bronchiectasis. However, a CT scan will be warranted at this time. In the meantime she does complaint of increasing cough with some chest congestion. She is not using any maintenance inhalers at this time. She is also complaining of a postnasal drip. The patient also may indeed have some allergies. Will treat her postnasal drip with fluticasone in addition to having her continue her short-acting beta agonist as needed. However will hold off in additional medicine to she undergoes her CT scan of the chest and also pulmonary function studies. 10/09/2020 the patient is here for pulmonary follow-up visit. Overall she is doing well. Denies any significant coughing or shortness of breath. We did review again her CT scan from [facility] back in the fall of 2019 demonstrating a nodular density in the right middle lobe area. She also had bronchiectatic changes that were consistent with her non tuberculosis mycobacteria infection. Therefore, she did have a repeat CT scan of the chest and we reviewed it as well. It appeared that the right middle lobe nodular density resolved likely from mucus plugging. 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 The patient also underwent pulmonary function studies which were reassuring without any obstructive nor restrictive ventilatory defects. However, she did have a moderate diffusion impairment out of proportion to her findings of the CT scan. Therefore she is to continue her respiratory therapy but adding CPT with a flutter valve and hypertonic saline via nebulizer may be helpful in improving her gas exchange at this time. 10/21/2020 the patient is here for pulmonary follow-up visit. She did try the CPT with hypertonic saline but only resulted in worsening symptoms. After several days of using it she decided to stop it because of his breathing was getting worse. When she stop that she was back to feeling relatively normal. She continues have a cough but minimal expectoration. She is going to start walking more to allow the exercise help her with chest physical therapy. In the meantime will hold off on hypertonic saline. Otherwise patient is without any other complaints. 04/28/2021 the patient is here for a pulmonary follow-up visit. The patient is doing relatively well. Although, she is developing worsening productive cough. Usually worse in the morning. She does have an Acapella valve that she can use her own expectorate. We did talk about considering a percussion vest if is not helpful. Will try to collect sputum samples both for AFB and also regular cultures to make sure she is not colonized with any bacterial organisms such as Pseudomonas. In the meantime the patient is going to undergo a total hip replacement. The patient also has planned follow-up for her history of breast cancer. We did review her last CT scan of the chest that was done in the spring demonstrating multiple pulmonary nodules. In addition to that the patient does have evidence of bronchiectasis primarily in the right middle lobe area. In view of her ongoing and worsening symptoms we will plan to repeat a CT scan a year from her last CT scan in the spring. 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 09/21/2021 the patient is here for a pulmonary follow-up visit. Overall the patient has been feeling well from a respiratory status. She denies any limitations from a respiratory 20 viewed. She does have a cough that is chronic for her. She has been limited from a exercise standpoint because of her bad hip. She did have 1 hip replacement no be plan to have her 2nd. Hopefully then she can start exercising more regularly. Otherwise I did give her some recommendations of exercise she can use with her upper body. The patient did have a recent CT scan of the chest that we personally reviewed. Appears that she does have little more progression of the bronchiectatic disease in the tree in budding in the pulmonary nodules consistent with her non tuberculosis mycobacterial disease. We did try to get a sputum culture but she patient was unable to bring up any. We did talk about considering a bronchoscopy. But right now she is currently feeling well and she will be going to undergo surgery so at this point we can hold off. If however she starts developing mucus p roduction she can give me a sputum sample again. Otherwise if she is not able to give a sputum sample when she is more congested and more symptomatic would consider bronchoscopy with Deep respiratory cultures. In addition to that will have to continue monitoring the pulmonary nodules. If the nodules continue growing then that may also be an issue as far as considering concomitant conditions. Again clinically she is doing well will continue to provide her with respiratory therapy. She did not really feel the hypertonic saline was effective for her. She is going to continue using the Nebulizer with levo albuterol and also use the Acapella valve. 04/19/2022 the patient is here for a pulmonary follow-up visit. She continues to do very well a respiratory status. She is very busy taking care of both her mother and father. They both have significant health issues and they live at home with her. She is recovering well from her hip surgery. However, due to the fact that she is taking care of her elderly parents and doing her activities of daily living she did develop sciatica. This has caused her significant discomfort. She is currently undergoing physical therapy. Prior to that she was exercising regularly. We did review her pulmonary function studies demonstrating some evidence of obstruction although clinically in stable condition. The patient also had a CT scan of the chest back in May 2021 demonstrating pulmonary nodules and worsening Airway disease. Will plan to repeat the CT scan in 4-6 months. If her symptoms were to worsen prior to that she is to call the office in order for an earlier assessment. 10/23/2022 the patient is here for pulmonary follow-up visit. The patient is complaining of a dry cough. Moderate severity. She started developing the cough after having COVID-19. She quarantine at home during her COVID infection. Was not a severe infection. The cough is been nagging her. Denies any significant shortness of breath or wheezing or chest congestion. She has tried multiple things including prednisone and also Tessalon Perles. Does over partially helpful. The patient has a cruise planned for the end of the week and she wants to feel better. I will send her additional medications to the pharmacy. She does have some lower extremity edema that is not clear in etiology. She denies any significant pain or tenderness on the cast and appears to be symmetrical. She has been more sedentary since the loss of her father. In addition to that we did review her recent CT scan of the chest from September 2022 which demonstrated stable bronchiectatic changes tree in bud. She appears to have a little bit more tree-in-bud and micronodular densities on her left hemithorax. Will go and repeat the CT scan in a year's time. The patient appears to be fairly asymptomatic besides the hacky cough so therefore hold off on any treatment at this time. 02/02/2023 the patient is here for a pulmonary follow-up visit. She actually has been doing very well from a respiratory status. Denies any significant shortness of breath or cough. She does have a chest PT and she should be doing it daily. We did review her last CT scan of the chest actually she had to 1 in September 2022 and another 1 more recently in December 2022. does most recent 1 was done at [facility] and was primarily done because she has a pacemaker and was just to check her cardiac leads which appear to be in place. That CT scan still demonstrated the peribronchial nodular densities the bronchiectasis that she has had for many years. When compared to 2019 no significant changes in the pulmonary nodules or other bronchiectatic changes. Therefore hold off on additional imaging at this time. Will reassess any further imaging needed in a year's time. If the patient develops any worsening symptoms prior to that she is to call the office for an earlier assessment. 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 Pulmonary nodules SVT (supraventricular tachycardia) Vasovagal syncope Surgical History History of lumpectomy of right breast (~2006) History of pacemaker (11/04/21) History of total left hip replacement (02/11/20) History of total right hip replacement (11/02/21) Hx of knee surgery (~2010) Family History Father Cancer Afib Mother Cancer HOCM (hypertrophic obstructive cardiomyopathy) Social History Household Members: Family Housing: House Alcohol intake: current Alcohol intake frequency: a few times a week Alcohol type: wine Patient Tobacco Use Status: Never used Tobacco Review of Systems Const Denies night sweats and Denies weight gain ENT Denies change in voice, Denies lip swelling, Denies mouth pain, Reports nasal congestion, Reports nasal discharge, Reports post nasal drip and Denies tongue swelling Card Denies chest pain and Reports dyspnea on exertion Resp Denies chest congestion, Reports cough, Denies hemoptysis, Denies excessive phlegm production and Reports dyspnea on exertion GI Denies abdominal pain Musc Reports as per HPI, Reports back pain, Reports arthralgias, Reports limited range of motion and Reports radiating pain into limb Neuro Denies Neuro-related abnormal movements Psych Denies no additional complaints Ryan/Lymph Denies easy bleeding and Denies lymphadenopathy Aller/Immun Denies lip swelling and Denies tongue swelling Physical Exam Vital Signs: Last Vital Signs Pulse 69 02/02/23 12:58 BP 128/60 02/02/23 12:58 Pulse Ox 96 02/02/23 12:58 Oxygen Delivery Method Room Air 02/02/23 12:58 BMI result Body Mass Index 25.3 Const General: alert Neck Neck: Yes normal visual inspection, Yes full ROM and Yes no lymphadenopathy Chest Chest palpation & inspection: normal inspection of the chest Resp Auscultation: diminished lung sounds Cardio Rate: regular rate Rhythm: regular rhythm Heart sounds: S1 normal heart sound present and S2 normal heart sound present GI Palpation (GI): Soft to palpation and nontender Auscultation: normal bowel sounds Skin General skin exam: rashes and/or lesions noted Extrem General: Yes edema Assessment & Plan Assessment & Plan (1) 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: Code(s): J70.1 - Chronic and other pulmonary manifestations due to radiation (2) Mycobacterial disease: Comment: smoldering Code(s): A31.9 - Mycobacterial infection, unspecified (3) Bronchiectasis: Code(s): J47.9 - Bronchiectasis, uncomplicated Qualifiers: Bronchiectasis type: uncomplicated Qualified Code(s): J47.9 - Bronchiectasis, uncomplicated (4) Pulmonary nodules: Comment: Has new micronodules on the left hemithorax Code(s): R91.8 - Other nonspecific abnormal finding of lung field Plan Continue short-acting beta agonist as needed Xopenex via neb BID CPT with flutter valve Tessalon pearls as needed We will reassess the need for additional imaging in 1 yr F/U 10-12 months Coding Level of Care Code Est Pt Level 4 (95818) Diagnoses 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
== END 2023-02-02 13:45 | disposition home or self-care (01) ==
PROVIDERS: PCP Internal Medicine; Visit Provider Hospitalist
DX: J70.1 Chronic and other pulmonary manifestations due to radiation (principal); A31.9 Mycobacterial infection, unspecified; J47.9 Bronchiectasis, uncomplicated; R91.8 Other nonspecific abnormal finding of lung field
CPT/HCPCS: 99214

== ENCOUNTER → 2023-02-02 12:51 | Outpatient (BNVA) | payer MEDICARE, SELFPAY | PROVIDERS: PCP Internal Medicine; Visit Provider Hospitalist | DX: J70.1 Chronic and other pulmonary manifestations due to radiation (principal); A31.9 Mycobacterial infection, unspecified; J47.9 Bronchiectasis, uncomplicated; R91.8 Other nonspecific abnormal finding of lung field | CPT/HCPCS: 99212 ==

== ENCOUNTER → 2023-02-16 23:59 | Outpatient (BNV) | payer MEDICARE, SELFPAY ==
--- NOTE | 2023-02-16 14:54 | MHC.OFFVIS ---
Intake Intake Visit Reasons: Remote Device Check- Medtronic Allergies lisinopril Allergy (Intermediate, Verified 02/02/23 13:01) cough Sulfa (Sulfonamide Antibiotics) Allergy (Intermediate, Verified 02/02/23 13:01) hives/swelling trimethoprim Allergy (Intermediate, Verified 02/02/23 13:01) RASH codeine Allergy (Mild, Verified 02/02/23 13:01) HEADACHES, headache Gadolinium-Containing Contrast Medi [Gadolinium-Containing Agents] Allergy (Mild, Verified 02/02/23 13:01) 14cc of Multihance meperidine Adverse Reaction (Mild, Verified 02/02/23 13:01) NAUSEA/VOMITING Latex Gloves Allergy (Intermediate, Uncoded 02/02/23 13:01) hives PFSH Medical History Bronchiectasis Cardiac pacemaker in situ 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 GERD (gastroesophageal reflux disease) HTN (hypertension) Incomplete RBBB Infiltrating ductal carcinoma of right breast Mycobacterial disease Paroxysmal atrial fibrillation [id number] syndrome Pulmonary nodules SVT (supraventricular tachycardia) Vasovagal syncope Surgical History History of lumpectomy of right breast (~2006) History of pacemaker (11/04/21) History of total left hip replacement (02/11/20) History of total right hip replacement (11/02/21) Hx of knee surgery (~2010) Family History Father Cancer Afib Mother Cancer HOCM (hypertrophic obstructive cardiomyopathy) Social History Household Members: Family Housing: House Alcohol intake: current Alcohol intake frequency: a few times a week Alcohol type: wine Patient Tobacco Use Status: Never used Tobacco Office Procedures Cardiac Device Check Cardiac Device Check Details: Remote pacemaker report generated 02/16/2023. Pacemaker function is adequate [id number] Cardiac Device Interrogation, pacemaker Procedure code (CPT) selection complete Coding Level of Care Code Procedure Only CPT Codes Cardiac Device Check - Cardiac Device 12: [id number] Cardiac Device Interrogation, pacemaker ([id number])
== END ==
PROVIDERS: PCP Internal Medicine; Visit Provider Internal Medicine Cardiovascular Disease
DX: I48.0 Paroxysmal atrial fibrillation (principal); Z95.0 Presence of cardiac pacemaker
CPT/HCPCS: 93294

== ENCOUNTER 2023-05-15 10:08 | Outpatient (REF) | payer MEDICARE, SELFPAY ==
--- NOTE | ~2023-05-15 | MM_ITS ---
EXAMINATION: MM SCREENING DIGITAL BREAST TOMOSYNTHESIS, BILATERAL CLINICAL INFORMATION: Screening. Asymptomatic. The patient has had prior cancer surgery of the right breast performed 2008. There is also history of a benign left breast excisional 2008. COMPARISON: Mammography: This study is compared with prior exams dating back to 2019. TECHNIQUE: Digital breast tomosynthesis is performed in both the craniocaudal and mediolateral oblique views along with computer-aided detection (CAD). Synthesized 2D images are generated from the tomosynthesis. FINDINGS: There are scattered areas of fibroglandular density (ACR BI-RADS breast composition Category b). A pacemaker is present in the superior most aspect of the left breast. There are no significant masses, abnormal calcifications, or other abnormalities. There are architectural changes in the deep third of the superior aspect of the right breast from prior cancer surgery. There are associated posttreatment changes with chronic right breast skin thickening from prior radiation therapy. There are architectural changes in the upper outer quadrant of the left breast from prior benign excision. There is a tissue marker in the left breast from prior benign percutaneous biopsy. There are bilateral, benign calcifications. MM/MM tomosynthesis screening BI IMPRESSION: No mammographic evidence of malignancy. ASSESSMENT: BI-RADS BI-RADS 2 - Benign Findings RECOMMENDATION: Routine annual mammography screening. 1 year F/U This examination should not preclude the clinical evaluation of a suspicious palpable abnormality. This patient's information was entered into a reminder system with a target due date for their next mammogram.
== END 2023-05-15 10:09 | disposition home or self-care (01) ==
LOC: HO.MAMMO 10:08
PROVIDERS: PCP Internal Medicine; Visit Provider Internal Medicine
DX: Z12.31 Encounter for screening mammogram for malignant neoplasm of breast (principal)
CPT/HCPCS: 77063; 77067

== ENCOUNTER → 2023-05-15 10:30 | Outpatient (BNV) | payer MEDICARE, SELFPAY | PROVIDERS: PCP Internal Medicine; Visit Provider Radiology Diagnostic Radiology | DX: Z12.31 Encounter for screening mammogram for malignant neoplasm of breast (principal) | CPT/HCPCS: 77063; 77067 ==

== ENCOUNTER → 2023-05-18 23:59 | Outpatient (BNV) | payer MEDICARE, SELFPAY ==
--- NOTE | 2023-05-21 14:24 | MHC.OFFVIS ---
Intake Intake Visit Reasons: Remote Device Check- Medtr[employer] Allergies lisinopril Allergy (Intermediate, Verified 02/02/23 13:01) cough Sulfa (Sulfonamide Antibiotics) Allergy (Intermediate, Verified 02/02/23 13:01) hives/swelling trimethoprim Allergy (Intermediate, Verified 02/02/23 13:01) RASH codeine Allergy (Mild, Verified 02/02/23 13:01) HEADACHES, headache Gadolinium-Containing Contrast Medi [Gadolinium-Containing Agents] Allergy (Mild, Verified 02/02/23 13:01) 14cc of Multihance meperidine Adverse Reaction (Mild, Verified 02/02/23 13:01) NAUSEA/VOMITING Latex Gloves Allergy (Intermediate, Uncoded 02/02/23 13:01) hives PFSH Medical History Bronchiectasis Cardiac pacemaker in situ 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 GERD (gastroesophageal reflux disease) HTN (hypertension) Incomplete RBBB Infiltrating ductal carcinoma of right breast Mycobacterial disease Paroxysmal atrial fibrillation [id number] syndrome Pulmonary nodules SVT (supraventricular tachycardia) Vasovagal syncope Surgical History History of lumpectomy of right breast (~2006) History of pacemaker (11/04/21) History of total left hip replacement (02/11/20) History of total right hip replacement (11/02/21) Hx of knee surgery (~2010) Family History Father Cancer Afib Mother Cancer HOCM (hypertrophic obstructive cardiomyopathy) Social History Household Members: Family Housing: House Alcohol intake: current Alcohol intake frequency: a few times a week Alcohol type: wine Patient Tobacco Use Status: Never used Tobacco Office Procedures Cardiac Device Check Cardiac Device Check Details: Remote pacemaker report generated 05/18/2023. Pacemaker function is adequate [id number] Cardiac Device Interrogation, pacemaker Procedure code (CPT) selection complete Assessment & Plan Assessment & Plan (1) Cardiac pacemaker in situ: Comment: Dual-chamber Medtronic pacemaker placed in October of 2021 for post hip surgery sinus pause Code(s): Z95.0 - Presence of cardiac pacemaker Plan: See above Coding Level of Care Code Procedure Only Diagnoses Cardiac pacemaker in situ Z95.0 CPT Codes Cardiac Device Check - Cardiac Device 12: [id number] Cardiac Device Interrogation, pacemaker ([id number])
== END ==
PROVIDERS: PCP Internal Medicine; Visit Provider Internal Medicine Cardiovascular Disease
DX: I48.0 Paroxysmal atrial fibrillation (principal); Z95.0 Presence of cardiac pacemaker
CPT/HCPCS: 93294

== ENCOUNTER 2023-06-28 10:39 | Outpatient (AMB) | payer MEDICARE, SELFPAY ==
--- NOTE | 2023-06-28 10:42 | MHC.OFFVIS ---
Intake Vital Signs 06/28/23 10:48 Height 5 ft 6 in Weight 163 lb BMI 26.3 BP 133/63 Blood Pressure Location Lt brachial Position Sitting Pulse 87 Intake Visit Reasons: Yearly Breast Exam Intake Note: Patient is seen in office for yearly breast exam. Pt c/o: denies any concerns regarding the breast mm:05/15/23 B MRI:05/30/21 Cloud Engagement Partner Required: No Accompanied by: Self / Same As Patient Allergies lisinopril Allergy (Intermediate, Verified 06/28/23 10:45) cough Sulfa (Sulfonamide Antibiotics) Allergy (Intermediate, Verified 06/28/23 10:45) hives/swelling trimethoprim Allergy (Intermediate, Verified 06/28/23 10:45) RASH codeine Allergy (Mild, Verified 06/28/23 10:45) HEADACHES, headache Gadolinium-Containing Contrast Medi [Gadolinium-Containing Agents] Allergy (Mild, Verified 06/28/23 10:45) 14cc of Multihance meperidine Adverse Reaction (Mild, Verified 06/28/23 10:45) NAUSEA/VOMITING Latex Gloves Allergy (Intermediate, Uncoded 06/28/23 10:45) hives HPI HPI Comments History of Present Illness Details 77-year-old female patient, former patient of Dr. Perkins and Dr. Rivera returning today for an annual breast examination following recent breast MRI. She has a previous history of an infiltrating ductal carcinoma of the right breast status post right breast lumpectomy with sentinel node biopsy on 06/12/2006. She was found to have a 0.8 cm grade 1, ER/DE positive, HER2 Phil positive infiltrating ductal carcinoma. 0 of 1 lymph node revealed metastatic disease (T1 be N0 M0, stage I). A breast MRI performed on 04/21/2019 revealed an area of clumped nodular enhancement in the left breast at around 06:00 o'clock position. An MR guided biopsy was performed on 05/14/2019 and revealed benign columnar cell changes, mild unusual ductal hyperplasia, and cystic apocrine metaplasia. A mammogram performed on 04/15/2020 revealed stable appearance of the left breast without suspicious calcifications identified. A MR dated 11/30/2020 revealed a normal right breast however interval increase in the left-sided background parenchyma enhancement which was somewhat patchy appearance was noted on the left side. No dominant suspicious area of abnormality was seen on the left. Six-month follow-up MRI performed on 05/30/2021 revealed no new suspicious masslike or non masslike enhancement, no abnormal skin thickening or nipple retraction, no abnormal architectural distortion or other suspicious findings (bilateral benign findings BI-RADS 2). Her most recent mammogram dated 05/15/2023 revealed no mammographic evidence of malignancy (BI-RADS 2). Routine annual screening is recommended. 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) History of total right hip replacement (11/02/21) Hx of knee surgery (~2010) Family History Father Cancer Afib Mother Cancer HOCM (hypertrophic obstructive cardiomyopathy) Social History Household Members: Family Housing: House Alcohol intake: current Alcohol intake frequency: a few times a week Alcohol type: wine Patient Tobacco Use Status: Never used Tobacco Review of Systems Const Denies night sweats ENT Denies tongue swelling Card Denies chest pain Resp Reports chest congestion, Reports cough and Reports excessive phlegm production GI Denies abdominal pain Denies nipple discharge Musc Denies no additional complaints Skin/Breast Denies breast swelling, Denies breast skin changes, Denies breast pain, Denies breast mass, Denies change in breast shape and Denies nipple discharge Neuro Denies Neuro-related abnormal movements Psych Denies no additional complaints Ryan/Lymph Denies easy bleeding and Denies lymphadenopathy Aller/Immun Denies tongue swelling Physical Exam Const General: no acute distress, well developed, alert and awake Nutritional Appearance: well nourished Orientation/consciousness: patient oriented x3 Limitations: no limitations HEENT Head: Yes normocephalic and Yes atraumatic Ears: hearing grossly normal bilaterally Chest Other: Right breast with a well-healed incision. No new skin change, nipple discharge, nipple retraction, palpable mass, or enlarged lymph node. Left breast with no palpable breast mass, skin change, nipple discharge, or enlarged lymph nodes. Resp Effort & Inspection: normal respiratory effort GI Inspection: Yes normal to inspection Skin General skin exam: no rashes or lesions noted Neuro General: patient oriented x3 Extrem General: Yes no clubbing, cyanosis or edema Assessment & Plan Assessment & Plan (1) Infiltrating ductal carcinoma of right breast: Code(s): C50.911 - Malignant neoplasm of unspecified site of right female breast Plan 77-year-old female patient with a previous history of infiltrating ductal carcinoma of the right breast status post lumpectomy and sentinel node biopsy in 2006. In November 2020 she underwent a breast MRI which revealed a low suspicion area on the left side therefore repeated MRI was performed in May 2021. This revealed no further suspicious findings in either breast (BI-RADS 2). Examination today reveals no suspicious findings in either breast as well. Mammogram performed 05/15/2023 revealed no mammographic evidence of malignancy (BI-RADS 2). Follow-up breast MRI will be scheduled for November 2023. I recommended follow-up mammogram in 1 year as well as breast examination in 1 year. She is welcome to call sooner p.r.n.. Orders: Orders MR byers BI wo/w con 11/10/23 Z91.89 - Other specified personal risk factors, not elsewhere classified Coding Level of Care Code Est Pt Level 3 (23754) Diagnoses Infiltrating ductal carcinoma of right breast C50.911
[2023-06-28 10:48] VITALS: BP 133/63; PULSE 87; BMI 26.3
== END 2023-06-28 11:01 | disposition home or self-care (01) ==
PROVIDERS: PCP Internal Medicine; Visit Provider Surgery
DX: C50.911 Malignant neoplasm of unspecified site of right female breast (principal)
CPT/HCPCS: 99213

== ENCOUNTER → 2023-06-28 10:39 | Outpatient (BNVA) | payer MEDICARE, SELFPAY | PROVIDERS: PCP Internal Medicine; Visit Provider Surgery | DX: C50.911 Malignant neoplasm of unspecified site of right female breast (principal) | CPT/HCPCS: 99212 ==

== ENCOUNTER 2023-07-02 09:28 | Outpatient (AMB) | payer MEDICARE, SELFPAY ==
[2023-07-02 09:40] VITALS: BP 110/70; PULSE 74; BMI 26.0
--- NOTE | 2023-07-02 09:40 | A.OFFVIS_ITS ---
Intake Vital Signs 07/02/23 09:40 Height 5 ft 6 in Weight 161 lb 6.054 oz BMI 26.0 BP 110/70 Blood Pressure Location Lt brachial Position Sitting Pulse 74 Intake Visit Reasons: 6 month follow up Intake Note: 6 mnth f/up p[t its feeling fine. Client Experience Administrator Required: No Accompanied by: Self / Same As Patient Allergies lisinopril Allergy (Intermediate, Verified 06/28/23 10:45) cough Sulfa (Sulfonamide Antibiotics) Allergy (Intermediate, Verified 06/28/23 10:45) hives/swelling trimethoprim Allergy (Intermediate, Verified 06/28/23 10:45) RASH codeine Allergy (Mild, Verified 06/28/23 10:45) HEADACHES, headache Gadolinium-Containing Contrast Medi [Gadolinium-Containing Agents] Allergy (Mild, Verified 06/28/23 10:45) 14cc of Multihance meperidine Adverse Reaction (Mild, Verified 06/28/23 10:45) NAUSEA/VOMITING Latex Gloves Allergy (Intermediate, Uncoded 06/28/23 10:45) hives Medication List - Last Reconciled 07/02/23 by Piyush Vilchis MD apixaban 5 mg PO BID atorvastatin 20 mg PO DAILY cholecalciferol (vitamin D3) 25 mcg PO DAILY escitalopram oxalate 10 mg PO DAILY losartan 100 mg PO DAILY omeprazole 20 mg PO DAILY propranolol ER 80 mg PO DAILY vitamins A,C,Q-dzsf-nsojts 4,296 mcg-226 mg-90 mg (PreserVision AREDS) 1 cap PO BID HPI HPI Comments History of Present Illness Details Iliana comes for follow-up. She denies any cardiac complaints at this point time. Denies any prolonged palpitation irregular heartbeat. Denies any shortness of breath, orthopnea, PND. She is still grieving the loss of her parents. Denies any lightheadedness, syncope. No bleeding issues or neurologic events. Takes all her medications. 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 Bronchiectasis Pulmonary nodules Incomplete RBBB Vasovagal syncope SVT (supraventricular tachycardia) HTN (hypertension) GERD (gastroesophageal reflux disease) Surgical History History of total right hip replacement (11/02/21) History of total left hip replacement (02/11/20) History of pacemaker (11/04/21) History of lumpectomy of right breast (~2006) Hx of knee surgery (~2010) Family History Father Cancer Afib Mother Cancer HOCM (hypertrophic obstructive cardiomyopathy) Social History Household Members: Family Housing: House Alcohol intake: current Alcohol intake frequency: a few times a week Alcohol type: wine Patient Tobacco Use Status: Never used Tobacco Review of Systems Const Reports chills, Reports fatigue, Reports fever(s), Reports frequent falls, Reports weakness, Reports weight gain and Reports weight loss ENT Reports dizziness Card Reports chest pain, Reports leg edema, Reports lightheadedness, Reports palpitations, Reports dyspnea and Reports dyspnea on exertion Resp Reports cough, Reports dyspnea and Reports dyspnea on exertion GI Reports hematochezia Musc Reports abnormal gait, Reports muscle weakness, Reports numbness, Reports rad iating pain into limb and Reports tingling Neuro Reports abnormal gait, Reports dizziness, Reports frequent falls, Reports numbness, Reports tingling and Reports weakness Endo Reports fatigue and Reports palpitations Physical Exam Vital Signs: Last Vital Signs Pulse 74 07/02/23 09:40 BP 110/70 07/02/23 09:40 BMI result Body Mass Index 26.0 Const General: cooperative, comfortable, no acute distress, alert, awake and well groomed Nutritional Appearance: average body habitus Orientation/consciousness: patient oriented x3 Limitations: no limitations Neck Neck: Yes trachea midline, Yes supple and Yes no JVD Chest Chest palpation & inspection: other (Pacemaker pocket is benign) Resp Effort & Inspection: normal respiratory effort Auscultation: clear to auscultation bilaterally and diminished lung sounds on the right throughout Cardio Jugular venous distension: no JVD Palpation: normal PMI Rate: regular rate Rhythm: regular rhythm Heart sounds: S1 normal heart sound present and S2 normal heart sound present GI Auscultation: normal bowel sounds Skin General skin exam: no rashes or lesions noted Neuro General: patient oriented x3 and no focal motor deficits Extrem General: Yes no clubbing, cyanosis or edema Office Procedures Cardiac Device Check Cardiac Device Check Details: Dual-chamber Medtronic pacemaker in place. Programmed in MVP mode at 45 beats per minute. Minimal atrial ventricular pacing. Two high ventricular rate episode consistent with SVT. No episodes of atrial fibrillation. Atrial ventricular sensing is adequate. Atrial ventricular pacing thresholds are adequate. Atrial pacing thresholds loading adjusted. Pacing lead impedance is stable. Battery life is excellent at 14 years 41035-MG Cardiac Device Check, pacemaker dual lead Procedure code (CPT) selection complete EKG Details: EKG shows normal sinus rhythm with incomplete right bundle-branch block [id number]-[id number], Complete Assessment & Plan Assessment & Plan (1) Cardiac pacemaker in situ: Comment: Dual-chamber Medtronic pacemaker placed in October of 2021 for post hip surgery sinus pause Code(s): Z95.0 - Presence of cardiac pacemaker Plan: Cardiac pacemaker in-situ placed for sinus pause. Minimal pacing at this point time at low heart rate set. Pacemaker is working well. Will follow-up in 6 months time and also follow remotely. (2) Paroxysmal atrial fibrillation: Comment: No prior history of atrial fibrillation. She underwent a total hip replacement on 02/10 and was discharged on 02/11. That evening she had a syncopal event, EMS was called. Her EKG showed atrial fibrillation with rapid ventricular response. She was managed medically and converted to normal sinus rhythm. She was started on anticoagulation discharged the following day. She has had no known recurrence of atrial fibrillation. She denies any chest pains or heart palpitations. Chads Vasc score of 3 with age, female, hypertension. She is now on Eliquis for anticoagulation. She continues on her usual propanolol which was not changed in the setting of the AFib. Will order Holter monitor to assess for recurrence of AFib or other arrhythmia. Since she had no warning prior to her syncopal event will check a limited echo to reassess EF. Last echo done 07/07/2019 shows EF 60-65%, mild AR, mild MR, [id number] TR. preop nuclear stress test done 01/21/2020 shows no ischemia, EF greater than 75%. Emergency care if she has any syncopal events Code(s): I48.0 - Paroxysmal atrial fibrillation Plan: Paroxysmal atrial fibrillation without any overt signs of recurrence at this point time. Continue propranolol therapy. Continue to avoid stimulants. Continue aggressive blood pressure control which is currently well optimized. Continue full oral anticoagulation, currently on Eliquis 5 mg b.i.d.. Semi annual renal function test should be pursued, being pursue 3 our office. (3) SVT (supraventricular tachycardia): Comment: no recent episodes of SVT. She continues on her usual propanolol. Code(s): I47.1 - Supraventricular tachycardia Plan: SVT with minimal episodes. She has no symptoms related to it. At this point time she requires no further intervention. Continue propranolol therapy. Vagal maneuvers were discussed. Avoidance of stimulants was discussed. Follow up in the clinic in 6 months time, sooner p.r.n.. Thank you for allowing me to partake in the care Coding Level of Care Code Est Pt Level 4 (06684) Diagnoses Cardiac pacemaker in situ Z95.0 Paroxysmal atrial fibrillation I48.0 SVT (supraventricular tachycardia) I47.1 CPT Codes Cardiac Device Check - Cardiac Device 2: [id number] Cardiac Device Check, pacemaker dual lead ([id number]) EKG - CPT: 79591-[id number], Complete ([id number])
== END 2023-07-02 10:04 | disposition home or self-care (01) ==
PROVIDERS: PCP Internal Medicine; Visit Provider Internal Medicine Cardiovascular Disease
DX: I48.0 Paroxysmal atrial fibrillation (principal); Z95.0 Presence of cardiac pacemaker; I47.10 Supraventricular tachycardia, unspecified
CPT/HCPCS: 93280; 99214

== ENCOUNTER → 2023-07-02 09:28 | Outpatient (BNVA) | payer MEDICARE, SELFPAY | PROVIDERS: PCP Internal Medicine; Visit Provider Internal Medicine Cardiovascular Disease | DX: Z45.018 Encounter for adjustment and management of other part of cardiac pacemaker (principal); I48.0 Paroxysmal atrial fibrillation; I47.10 Supraventricular tachycardia, unspecified | CPT/HCPCS: 93005; 93280; 99212 ==

== ENCOUNTER → 2023-08-17 23:59 | Outpatient (BNV) | payer MEDICARE, SELFPAY ==
--- NOTE | 2023-08-20 15:49 | A.OFFVIS_ITS ---
Intake Intake Visit Reasons: Remote Device Check- Medtronic Allergies lisinopril Allergy (Intermediate, Verified 06/28/23 10:45) cough Sulfa (Sulfonamide Antibiotics) Allergy (Intermediate, Verified 06/28/23 10:45) hives/swelling trimethoprim Allergy (Intermediate, Verified 06/28/23 10:45) RASH codeine Allergy (Mild, Verified 06/28/23 10:45) HEADACHES, headache Gadolinium-Containing Contrast Medi [Gadolinium-Containing Agents] Allergy (Mild, Verified 06/28/23 10:45) 14cc of Multihance meperidine Adverse Reaction (Mild, Verified 06/28/23 10:45) NAUSEA/VOMITING Latex Gloves Allergy (Intermediate, Uncoded 06/28/23 10:45) hives PFSH Medical History [id number] syndrome Cardiac pacemaker in situ Paroxysmal atrial fibrillation Infiltrating ductal carcinoma of right breast 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 Bronchiectasis Pulmonary nodules Incomplete RBBB Vasovagal syncope SVT (supraventricular tachycardia) HTN (hypertension) GERD (gastroesophageal reflux disease) Surgical History History of total right hip replacement (11/02/21) History of total left hip replacement (02/11/20) History of pacemaker (11/04/21) History of lumpectomy of right breast (~2006) Hx of knee surgery (~2010) Family History Father Cancer Afib Mother Cancer HOCM (hypertrophic obstructive cardiomyopathy) Social History Household Members: Family Housing: House Alcohol intake: current Alcohol intake frequency: a few times a week Alcohol type: wine Patient Tobacco Use Status: Never used Tobacco Office Procedures Cardiac Device Check Cardiac Device Check Details: Remote pacemaker report generated 08/17/2023. Pacemaker function is adequate. [place] of atrial fibrillation is minimal [id number] Cardiac Device Interrogation, pacemaker Procedure code (CPT) selection complete Assessment & Plan Assessment & Plan (1) Cardiac pacemaker in situ: Comment: Dual-chamber Medtronic pacemaker placed in October of 2021 for post hip surgery sinus pause Code(s): Z95.0 - Presence of cardiac pacemaker Plan: See above Coding Level of Care Code Procedure Only Diagnoses Cardiac pacemaker in situ Z95.0 CPT Codes Cardiac Device Check - Cardiac Device 12: [id number] Cardiac Device Interrogation, pacemaker ([id number])
== END ==
PROVIDERS: PCP Internal Medicine; Visit Provider Internal Medicine Cardiovascular Disease
DX: I48.0 Paroxysmal atrial fibrillation (principal); Z95.0 Presence of cardiac pacemaker
CPT/HCPCS: 93294

== ENCOUNTER 2023-10-10 08:44 | Outpatient (REF) | payer MEDICARE, SELFPAY ==
--- NOTE | ~2023-10-10 | CT_ITS ---
EXAMINATION: CT CHEST WITHOUT CONTRAST CLINICAL INFORMATION: Pulmonary nodules COMPARISON: 09/26/2022 TECHNIQUE: Multidetector volumetric CT imaging of the chest was done. Axial MIP volume rendering provided. Sagittal and coronal reformatted images were obtained. This CT examination was performed using dose optimization techniques as appropriate, variously including the following: *Automated exposure control *Adjustment of mA and/or kV according to patient size (this includes techniques or standardized protocols for targeted exams where dose is matched to indication/reason for exam; i.e. extremities or head) *Use of iterative reconstruction technique DLP: 131 mGy-cm FINDINGS: LUNGS: Left upper lobe lingular centrilobular nodules, increased from prior study. Left upper lobe irregular lingular nodule measures 7 mm (7:314). Interval decrease in left lower lobe centrilobular nodules, measuring up to 3 mm (7:409). Anterior right middle lobe bronchial wall thickening and impacted bronchi with centrilobular nodules, similar to prior study. Central airways are patent. PLEURA: No pleural effusion. MEDIASTINUM: The dual-lead pacemaker device is noted. Aorta and pulmonary artery are normal in caliber. Subcentimeter mediastinal lymph nodes, none of which are pathologically enlarged. Lack of IV contrast limits evaluation for hilar adenopathy. CORONARY ARTERY CALCIFICATION: No coronary artery calcification appreciated. CHEST WALL/AXILLA: No axillary or internal mammary lymphadenopathy. UPPER ABDOMEN: Small hiatal hernia. OSSEOUS STRUCTURES: Degenerative changes of the spine. CT/CT chest wo IV con IMPRESSION: Waxing and waning centrilobular nodules in the left upper lobe lingular region and right middle lobe and left lower lobe regions with areas of bronchial wall thickening and impacted bronchi. Largest nodule measures up to 7 mm. Differential considerations include multifocal aspiration/infection, including mycobacterium avium complex. According to the UPDATED 2017 Fleischner Society recommendations, the advised followup imaging for multiple solid nodules, the largest measuring 6 mm or greater, is: LOW RISK PATIENT: CT at 3-6 months, then consider CT at 18-24 months. HIGH RISK PATIENT: CT at 3-6 months, then at 18-24 months.
== END 2023-10-10 08:45 | disposition home or self-care (01) ==
LOC: HO.CT 08:44
PROVIDERS: PCP Internal Medicine; Visit Provider Hospitalist
DX: R91.8 Other nonspecific abnormal finding of lung field (principal)
CPT/HCPCS: 71250

== ENCOUNTER → 2023-11-16 23:59 | Outpatient (BNV) | payer MEDICARE, SELFPAY ==
--- NOTE | 2023-11-20 12:26 | A.OFFVIS_ITS ---
Intake Visit Reasons: Remote Device Check- Medtronic Allergies lisinopril Allergy (Intermediate, Verified 06/28/23 10:45) cough Sulfa (Sulfonamide Antibiotics) Allergy (Intermediate, Verified 06/28/23 10:45) hives/swelling trimethoprim Allergy (Intermediate, Verified 06/28/23 10:45) RASH codeine Allergy (Mild, Verified 06/28/23 10:45) HEADACHES, headache Gadolinium-Containing Contrast Medi [Gadolinium-Containing Agents] Allergy (Mild, Verified 06/28/23 10:45) 14cc of Multihance meperidine Adverse Reaction (Mild, Verified 06/28/23 10:45) NAUSEA/VOMITING Latex Gloves Allergy (Intermediate, Uncoded 06/28/23 10:45) hives [facility] Medical History [id number] syndrome Cardiac pacemaker in situ Paroxysmal atrial fibrillation Infiltrating ductal carcinoma of right breast 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 Bronchiectasis Pulmonary nodules Incomplete RBBB Vasovagal syncope SVT (supraventricular tachycardia) HTN (hypertension) GERD (gastroesophageal reflux disease) Surgical History History of total right hip replacement (11/02/21) History of total left hip replacement (02/11/20) History of pacemaker (11/04/21) History of lumpectomy of right breast (~2006) Hx of knee surgery (~2010) Family History Father Cancer Afib Mother Cancer HOCM (hypertrophic obstructive cardiomyopathy) Social History Household Members: Family Housing: House Alcohol intake: current Alcohol intake frequency: a few times a week Alcohol type: wine Patient Tobacco Use Status: Never used Tobacco Office Procedures Cardiac Device Check Cardiac Device Check Details: Remote pacemaker report generated 11/16/2023. Pacemaker function is adequate. Very brief episodes of atrial fibrillation noted [id number] Cardiac Device Interrogation, pacemaker Procedure code (CPT) selection complete Assessment & Plan Assessment & Plan (1) Cardiac pacemaker in situ: Comment: Dual-chamber Medtronic pacemaker placed in October of 2021 for post hip surgery sinus pause Code(s): Z95.0 - Presence of cardiac pacemaker Category: Medical Plan: see above Coding Level of Care Code Procedure Only Diagnoses Cardiac pacemaker in situ Z95.0 CPT Codes Cardiac Device Check - Cardiac Device 12: [id number] Cardiac Device Interrogation, pacemaker ([id number])
== END ==
PROVIDERS: PCP Internal Medicine; Visit Provider Internal Medicine Cardiovascular Disease
DX: I48.91 Unspecified atrial fibrillation (principal); Z95.0 Presence of cardiac pacemaker
CPT/HCPCS: 93294

== ENCOUNTER 2024-01-01 08:42 | Outpatient (AMB) | payer MEDICARE, SELFPAY ==
[2024-01-01 08:47] VITALS: BP 120/82; PULSE 76; BMI 26.7
--- NOTE | 2024-01-01 08:47 | MHC.OFFVIS ---
Vital Signs 01/01/24 08:47 Height 5 ft 6 in Weight 165 lb 5.547 oz BMI 26.7 BP 120/82 Blood Pressure Location Lt brachial Position Sitting Pulse 76 Intake Visit Reasons: 6 m,th f/up Intake Note: 6 month follow-up Medtronic c/o fluttering at night Oral Therapist Required: No Allergies lisinopril Allergy (Intermediate, Verified 06/28/23 10:45) cough Sulfa (Sulfonamide Antibiotics) Allergy (Intermediate, Verified 06/28/23 10:45) hives/swelling trimethoprim Allergy (Intermediate, Verified 06/28/23 10:45) RASH codeine Allergy (Mild, Verified 06/28/23 10:45) HEADACHES, headache Gadolinium-Containing Contrast Medi [Gadolinium-Containing Agents] Allergy (Mild, Verified 06/28/23 10:45) 14cc of Multihance meperidine Adverse Reaction (Mild, Verified 06/28/23 10:45) NAUSEA/VOMITING Latex Gloves Allergy (Intermediate, Uncoded 06/28/23 10:45) hives Medication List - Last Reconciled 01/01/24 by Piyush Vilchis MD apixaban 5 mg PO BID atorvastatin 20 mg PO DAILY cholecalciferol (vitamin D3) 25 mcg PO DAILY diphenhydramine HCl (Benadryl Allergy) 50 mg (2 x 25 mg) PO ONCE PRN escitalopram oxalate 10 mg PO DAILY losartan 100 mg PO DAILY omeprazole 20 mg PO DAILY propranolol ER 80 mg PO DAILY vitamins A,C,R-ftpo-bmrdvk 4,296 mcg-226 mg-90 mg (PreserVision AREDS) 1 cap PO BID HPI Comments Details: Iliana comes for follow-up. Patient says she occasionally gets flutters at nighttime. Otherwise she has been generally doing well. She denies any prolonged palpitation irregular heartbeat. No lightheadedness, syncope. No bleeding issues or neurologic events. Remains very active and denies any exertional chest pain or shortness of breath. No orthopnea, PND, leg edema. 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 Bronchiectasis Pulmonary nodules Incomplete RBBB Vasovagal syncope SVT (supraventricular tachycardia) HTN (hypertension) GERD (gastroesophageal reflux disease) Surgical History History of total right hip replacement (11/02/21) History of total left hip replacement (02/11/20) History of pacemaker (11/04/21) History of lumpectomy of right breast (~2006) Hx of knee surgery (~2010) Family History Father Cancer Afib Mother Cancer HOCM (hypertrophic obstructive cardiomyopathy) Social History Household Members: Family Housing: House Alcohol intake: current Alcohol intake frequency: a few times a week Alcohol type: wine Patient Tobacco Use Status: Never used Tobacco Review of Systems Const Denies chills, Denies fatigue, Denies fever(s), Denies frequent falls, Denies weakness, Denies weight gain and Denies weight loss ENT Denies dizziness Card Denies chest pain, Denies leg edema, Denies lightheadedness, Denies palpitations, Denies dyspnea, Denies dyspnea on exertion, Denies orthopnea and Denies other (loss of consciousness) Resp Denies cough, Denies dyspnea and Denies dyspnea on exertion GI Denies hematochezia and Denies change in stool character Musc Denies abnormal gait, Denies muscle weakness, Denies numbness, Denies radiating pain into limb and Denies tingling Neuro Denies abnormal gait, Denies dizziness, Denies frequent falls, Denies numbness, Denies tingling and Denies weakness Endo Denies fatigue and Denies palpitations Physical Exam Vital Signs: Last Vital Signs Pulse 76 01/01/24 08:47 BP 120/82 01/01/24 08:47 BMI result Body Mass Index 26.7 Office Procedures Cardiac Device Check Cardiac Device Check Details: Dual-chamber Medtronic pacemaker in place. Programmed in MVP mode at 45 beats per minute. Atrial pacing 0.3% of time. Ventricular pacing 0.2% of time. Seventy-five rate drop episodes noted. No episodes of atrial fibrillation noted. Two short lived episodes of high ventricular rate consistent with SVT noted lasting about 2nd. Atrial ventricular pacing thresholds excellent. Atrial ventricular sensing is excellent. Pacing lead impedance is stable. Battery life is at about 13 years [id number] Cardiac Device Check, pacemaker dual lead Procedure code (CPT) selection complete Assessment & Plan Assessment & Plan (1) Paroxysmal atrial fibrillation: Comment: No prior history of atrial fibrillation. She underwent a total hip replacement on 02/10 and was discharged on 02/11. That evening she had a syncopal event, EMS was called. Her EKG showed atrial fibrillation with rapid ventricular response. She was managed medically and converted to normal sinus rhythm. She was started on anticoagulation discharged the following day. She has had no known recurrence of atrial fibrillation. She denies any chest pains or heart palpitations. Chads Vasc score of 3 with age, female, hypertension. She is now on Eliquis for anticoagulation. She continues on her usual propanolol which was not changed in the setting of the AFib. Will order Holter monitor to assess for recurrence of AFib or other arrhythmia. Since she had no warning prior to her syncopal event will check a limited echo to reassess EF. Last echo done 07/07/2019 shows EF 60-65%, mild AR, mild MR, aive-vw-cwvhschj TR. preop nuclear stress test done 01/21/2020 shows no ischemia, EF greater than 75%. Emergency care if she has any syncopal events Code(s): I48.0 - Paroxysmal atrial fibrillation Category: Medical Plan: Paroxysmal atrial fibrillation which has remained suppressed on current therapy. Continue propranolol therapy. Avoidance of stimulants was discussed. Continue full oral anticoagulation, currently on Eliquis 5 mg b.i.d.. Semi annual renal function test should be pursued. Advised to call me with worsening symptoms that may require further therapy including either antiarrhythmic and/or ablation. (2) Cardiac pacemaker in situ: Comment: Dual-chamber Medtronic pacemaker placed in October of 2021 for post hip surgery sinus pause Code(s): Z95.0 - Presence of cardiac pacemaker Category: Medical Plan: Cardiac pacemaker in-situ for sinus post post surgery but also kind of vasovagal syncope. She has multiple rate drop responses on currently set settings. Has had no syncopal episodes. Advised to maintain adequate amount of hydration. Will continue monitor remotely. Follow up in the clinic in 6 months. (3) SVT (supraventricular tachycardia): Comment: no recent episodes of SVT. She continues on her usual propanolol. Code(s): I47.1 - Supraventricular tachycardia Category: Medical Plan: SVT with very brief episodes and some symptoms related to it. However the episodes very brief and limited. Will continue propranolol therapy. Vagal maneuvers were discussed. Avoidance of stimulants was discussed. No other interventions required at this time (4) HTN (hypertension): Comment: Good at present time. Medications reviewed and no changes Code(s): I10 - Essential (primary) hypertension Category: Medical Plan: Hypertension which is currently well optimized on current medical therapy. Advised to monitor blood pressure intermittently at home. Maintain a log. Target goal blood pressure less than 130/84. Low-salt diet was discussed. Advised to maintain activity level as tolerated. Will follow up in the clinic in 6 months time, sooner p.r.n.. Thank you for allowing me to partake in her care Coding Level of Care Code Est Pt Level 4 (59631) Diagnoses Paroxysmal atrial fibrillation I48.0 Cardiac pacemaker in situ Z95.0 SVT (supraventricular tachycardia) I47.1 HTN (hypertension) I10 CPT Codes Cardiac Device Check - Cardiac Device 2: [id number] Cardiac Device Check, pacemaker dual lead ([id number])
== END 2024-01-01 09:23 | disposition home or self-care (01) ==
PROVIDERS: PCP Internal Medicine; Visit Provider Internal Medicine Cardiovascular Disease
DX: I48.0 Paroxysmal atrial fibrillation (principal); Z95.0 Presence of cardiac pacemaker; I47.10 Supraventricular tachycardia, unspecified; I10 Essential (primary) hypertension
CPT/HCPCS: 93280; 99214

== ENCOUNTER → 2024-01-01 08:42 | Outpatient (BNVA) | payer MEDICARE, SELFPAY | PROVIDERS: PCP Internal Medicine; Visit Provider Internal Medicine Cardiovascular Disease | DX: I48.0 Paroxysmal atrial fibrillation (principal); I47.10 Supraventricular tachycardia, unspecified; I10 Essential (primary) hypertension; Z45.018 Encounter for adjustment and management of other part of cardiac pacemaker; Z79.01 Long term (current) use of anticoagulants | CPT/HCPCS: 93280; 99212 ==

== ENCOUNTER → 2024-03-26 23:59 | Outpatient (BNV) | payer MEDICARE, SELFPAY ==
--- NOTE | 2024-04-14 17:30 | MHC.OFFVIS ---
Intake Visit Reasons: Remote Device Check- Medtronic Allergies lisinopril Allergy (Intermediate, Verified 06/28/23 10:45) cough Sulfa (Sulfonamide Antibiotics) Allergy (Intermediate, Verified 06/28/23 10:45) hives/swelling trimethoprim Allergy (Intermediate, Verified 06/28/23 10:45) RASH codeine Allergy (Mild, Verified 06/28/23 10:45) HEADACHES, headache Gadolinium-Containing Contrast Medi [Gadolinium-Containing Agents] Allergy (Mild, Verified 06/28/23 10:45) 14cc of Multihance meperidine Adverse Reaction (Mild, Verified 06/28/23 10:45) NAUSEA/VOMITING Latex Gloves Allergy (Intermediate, Uncoded 06/28/23 10:45) hives PFSH Medical History [id number] syndrome Cardiac pacemaker in situ Paroxysmal atrial fibrillation Infiltrating ductal carcinoma of right breast 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 Bronchiectasis Pulmonary nodules Incomplete RBBB Vasovagal syncope SVT (supraventricular tachycardia) HTN (hypertension) GERD (gastroesophageal reflux disease) Surgical History History of total right hip replacement (11/02/21) History of total left hip replacement (02/11/20) History of pacemaker (11/04/21) History of lumpectomy of right breast (~2006) Hx of knee surgery (~2010) Family History Father Cancer Afib Mother Cancer HOCM (hypertrophic obstructive cardiomyopathy) Social History Household Members: Family Housing: House Alcohol intake: current Alcohol intake frequency: a few times a week Alcohol type: wine Patient Tobacco Use Status: Never used Tobacco Office Procedures Cardiac Device Check Cardiac Device Check Details: Remote pacemaker report generated 03/26/2024. Pacemaker function is adequate [id number] Cardiac Device Interrogation, pacemaker Procedure code (CPT) selection complete Assessment & Plan Assessment & Plan (1) Cardiac pacemaker in situ: Comment: Dual-chamber Medtronic pacemaker placed in October of 2021 for post hip surgery sinus pause Code(s): Z95.0 - Presence of cardiac pacemaker Category: Medical Plan: See above Coding Level of Care Code Procedure Only Diagnoses Cardiac pacemaker in situ Z95.0 CPT Codes Cardiac Device Check - Cardiac Device 12: [id number] Cardiac Device Interrogation, pacemaker ([id number])
== END ==
PROVIDERS: PCP Internal Medicine; Visit Provider Internal Medicine Cardiovascular Disease
DX: Z45.018 Encounter for adjustment and management of other part of cardiac pacemaker (principal)
CPT/HCPCS: 93294

== ENCOUNTER → 2024-03-27 08:55 | Outpatient (BNV) | payer MEDICARE, SELFPAY | PROVIDERS: PCP Internal Medicine; Visit Provider Internal Medicine | DX: Z85.3 Personal history of malignant neoplasm of breast (principal) | CPT/HCPCS: 77049 ==

== ENCOUNTER 2024-03-27 09:04 | Outpatient (REF) | payer MEDICARE, SELFPAY ==
--- NOTE | ~2024-03-27 | MR_ITS ---
EXAMINATION: MR BREAST WITHOUT AND WITH CONTRAST, BILATERAL CLINICAL INFORMATION: High risk screening. History of right breast cancer status post lumpectomy. History of left breast excisional biopsy. COMPARISON: MRI May 2021, mammography May 2023. TECHNIQUE: Imaging of the breast was performed using T1, T2 and fat saturated techniques. Dynamic multiphase imaging was also performed after administration of intravenous gadolinium contrast agent. FINDINGS: Motion artifact obscures evaluation. Artifact from pacemaker slightly obscures visualization. There is heterogeneous fibroglandular tissue with marked background enhancement. LEFT BREAST: No suspicious enhancing mass or nonmass enhancement. No axillary or internal mammary adenopathy. RIGHT BREAST: No suspicious enhancing mass or nonmass enhancement. No axillary or internal mammary adenopathy. Limited views of the chest and abdomen are unremarkable. MR/MR breast BI wo/w con IMPRESSION: No MR specific evidence of malignancy. ASSESSMENT: LEFT BREAST: BI-RADS 2 benign. RIGHT BREAST: BI-RADS 2 benign. RECOMMENDATIONS: Yearly MRI screening surveillance. Electronically signed by: Sharlene Cerna DO 04/22/2024 12:10 PM LIZETH
[2024-03-27] MEDS: gadobutroL 7.5 ML VIAL IVPUSH (14:31)
== END 2024-03-27 09:05 | disposition home or self-care (01) ==
LOC: HO.MRI 09:04
PROVIDERS: PCP Internal Medicine; Visit Provider Surgery
DX: Z91.89 Other specified personal risk factors, not elsewhere classified (principal)
CPT/HCPCS: 77049; A9585

== ENCOUNTER → 2024-06-27 23:59 | Outpatient (BNV) | payer MEDICARE, SELFPAY ==
--- NOTE | 2024-07-04 12:31 | A.OFFVIS_ITS ---
Intake Visit Reasons: Remote Device Check- Medtronic Allergies lisinopril Allergy (Intermediate, Verified 07/01/24 09:10) cough Sulfa (Sulfonamide Antibiotics) Allergy (Intermediate, Verified 07/01/24 09:10) hives/swelling trimethoprim Allergy (Intermediate, Verified 07/01/24 09:10) RASH codeine Allergy (Mild, Verified 07/01/24 09:10) HEADACHES, headache Gadolinium-Containing Contrast Medi [Gadolinium-Containing Agents] Allergy (Mild, Verified 07/01/24 09:10) 14cc of Multihance meperidine Adverse Reaction (Mild, Verified 07/01/24 09:10) NAUSEA/VOMITING Latex Gloves Allergy (Intermediate, Uncoded 07/01/24 09:10) hives [facility] Medical History [id number] syndrome Cardiac pacemaker in situ Paroxysmal atrial fibrillation Infiltrating ductal carcinoma of right breast 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 Bronchiectasis Pulmonary nodules Incomplete RBBB Vasovagal syncope SVT (supraventricular tachycardia) HTN (hypertension) GERD (gastroesophageal reflux disease) Surgical History History of total right hip replacement (11/02/21) History of total left hip replacement (02/11/20) History of pacemaker (11/04/21) History of lumpectomy of right breast (~2006) Hx of knee surgery (~2010) Family History Father Cancer Afib Mother Cancer HOCM (hypertrophic obstructive cardiomyopathy) Social History Household Members: Family Housing: House Alcohol intake: current Alcohol intake frequency: a few times a week Alcohol type: wine Patient Tobacco Use Status: Never used Tobacco Office Procedures Cardiac Device Check Cardiac Device Check Details: Remote pacemaker report generated 06/27/2024. Pacemaker function is adequate [id number] Cardiac Device Interrogation, pacemaker Procedure code (CPT) selection complete Assessment & Plan Assessment & Plan (1) Cardiac pacemaker in situ: Comment: Dual-chamber Medtronic pacemaker placed in October of 2021 for post hip surgery sinus pause Code(s): Z95.0 - Presence of cardiac pacemaker Category: Medical Plan: See above Coding Level of Care Code Procedure Only Diagnoses Cardiac pacemaker in situ Z95.0 CPT Codes Cardiac Device Check - Cardiac Device 12: [id number] Cardiac Device Interrogation, pacemaker ([id number])
== END ==
PROVIDERS: PCP Internal Medicine; Visit Provider Internal Medicine Cardiovascular Disease
DX: Z45.018 Encounter for adjustment and management of other part of cardiac pacemaker (principal)
CPT/HCPCS: 93294

== ENCOUNTER 2024-07-01 08:53 | Outpatient (AMB) | payer MEDICARE, SELFPAY ==
--- NOTE | 2024-07-01 09:03 | MHC.OFFVIS ---
Vital Signs 07/01/24 09:10 Height 5 ft 6 in Weight 169 lb 4 oz BMI 27.3 BP 142/61 H Blood Pressure Location Lt brachial Position Sitting Pulse 86 Intake Visit Reasons: Yearly Breast Exam Intake Note: Patient is seen in office for yearly breast exam. Pt c/o: denies any concerns regarding the breast Networking Technology Instructor Required: No Plate Glass Grinder: Plate Glass Grinder Present Accompanied by: Self / Same As Patient Allergies lisinopril Allergy (Intermediate, Verified 07/01/24 09:10) cough Sulfa (Sulfonamide Antibiotics) Allergy (Intermediate, Verified 07/01/24 09:10) hives/swelling trimethoprim Allergy (Intermediate, Verified 07/01/24 09:10) RASH codeine Allergy (Mild, Verified 07/01/24 09:10) HEADACHES, headache Gadolinium-Containing Contrast Medi [Gadolinium-Containing Agents] Allergy (Mild, Verified 07/01/24 09:10) 14cc of Multihance meperidine Adverse Reaction (Mild, Verified 07/01/24 09:10) NAUSEA/VOMITING Latex Gloves Allergy (Intermediate, Uncoded 07/01/24 09:10) hives Medication List - Last Reconciled 07/01/24 by Best Gongora MD amlodipine 2.5 mg PO DAILY apixaban 5 mg PO BID atorvastatin 20 mg PO DAILY cholecalciferol (vitamin D3) 25 mcg PO DAILY diphenhydramine HCl (Benadryl Allergy) 50 mg (2 x 25 mg) PO ONCE PRN escitalopram oxalate 10 mg PO DAILY omeprazole 20 mg PO DAILY propranolol ER 80 mg PO DAILY valsartan 320 mg PO DAILY vitamins A,C,N-phus-jconkj 4,296 mcg-226 mg-90 mg (PreserVision AREDS) 1 cap PO BID HPI Comments Details: 78-year-old female patient, former patient of Dr. Perkins and Dr. Rivera returning today for an annual breast examination following recent breast MRI. She has a previous history of an infiltrating ductal carcinoma of the right breast status post right breast lumpectomy with sentinel node biopsy on 06/12/2006. She was found to have a 0.8 cm grade 1, ER/MN positive, HER2 Phil positive infiltrating ductal carcinoma. 0 of 1 lymph node revealed metastatic disease (T1 be N0 M0, stage I). A breast MRI performed on 04/21/2019 revealed an area of clumped nodular enhancement in the left breast at around 06:00 o'clock position. An MR guided biopsy was performed on 05/14/2019 and revealed benign columnar cell changes, mild unusual ductal hyperplasia, and cystic apocrine metaplasia. Her most recent mammogram dated 05/15/2023 revealed no mammographic evidence of malignancy (BI-RADS 2). She is now due for an annual mammogram. Her most recent MRI performed on 03/27/2024 revealed no MR evidence of malignancy (BI-RADS 2 bilaterally). She feels well and only knows occasional sharp pains in the right axilla. She denies any new palpable mass or skin change. 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 Bronchiectasis Pulmonary nodules Incomplete RBBB Vasovagal syncope SVT (supraventricular tachycardia) HTN (hypertension) GERD (gastroesophageal reflux disease) Surgical History History of total right hip replacement (11/02/21) History of total left hip replacement (02/11/20) History of pacemaker (11/04/21) History of lumpectomy of right breast (~2006) Hx of knee surgery (~2010) Family History Father Cancer Afib Mother Cancer HOCM (hypertrophic obstructive cardiomyopathy) Social History Household Members: Family Housing: House Alcohol intake: current Alcohol intake frequency: a few times a week Alcohol type: wine Patient Tobacco Use Status: Never used Tobacco Review of Systems Const All systems reviewed & are unremarkable except as noted in HPI and below Denies night sweats ENT Denies tongue swelling Card Denies chest pain Resp Reports chest congestion, Reports cough and Reports excessive phlegm production GI Denies abdominal pain Denies nipple discharge Musc Denies no additional complaints Skin/Breast Denies breast swelling, Denies breast skin changes, Denies breast pain, Denies breast mass, Denies change in breast shape and Denies nipple discharge Neuro Denies Neuro-related abnormal movements Psych Denies no additional complaints Ryan/Lymph Denies easy bleeding and Denies lymphadenopathy Aller/Immun Denies tongue swelling Physical Exam Vital Signs: Last Vital Signs Pulse 86 07/01/24 09:10 BP 142/61 H 07/01/24 09:10 BMI result Body Mass Index 27.3 Const General: no acute distress, well developed, alert and awake Nutritional Appearance: well nourished Orientation/consciousness: patient oriented x3 Limitations: no limitations HEENT Head: Yes normocephalic and Yes atraumatic Ears: hearing grossly normal bilaterally Chest Other: Right breast with a well-healed incision. No new skin change, nipple discharge, nipple retraction, palpable mass, or enlarged lymph node. Left breast with no palpable breast mass, skin change, nipple discharge, or enlarged lymph nodes. Chest/axillae images: 1. 2. Resp Effort & Inspection: normal respiratory effort GI Inspection: Yes normal to inspection Skin General skin exam: no rashes or lesions noted Neuro Other: Mobility Assessment: 1. 3 meter assessment time (seconds) 5 2. Gait observations: Normal balance and gait General: patient oriented x3 Extrem General: Yes no clubbing, cyanosis or edema Assessment & Plan Assessment & Plan (1) Infiltrating ductal carcinoma of right breast: Code(s): C50.911 - Malignant neoplasm of unspecified site of right female breast Category: Medical (2) Family history of breast cancer: Code(s): Z80.3 - Family history of malignant neoplasm of breast Category: Medical Plan 78-year-old female patient with a previous history of infiltrating ductal carcinoma of the right breast status post lumpectomy and sentinel node biopsy in 2006. Examination today reveals no suspicious findings in either breast. Mammogram performed 05/15/2023 revealed no mammographic evidence of malignancy (BI-RADS 2). Breast MRI performed on 03/27/2024 revealed no MR specific evidence of malignancy (BI-RADS 2 bilaterally). She is now due for an annual bilateral mammogram. I recommended follow-up examination in 1 year, sooner p.r.n.. Orders: Orders MM screening mammo BI Today C50.911 - Malignant neoplasm of unspecified site of right female breast, Z80.3 - Family history of malignant neoplasm of breast Coding Level of Care Code Est Pt Level 3 (28342) Complex EM visit Add On G2211 Diagnoses Infiltrating ductal carcinoma of right breast C50.911 Family history of breast cancer Z80.3
[2024-07-01 09:10] VITALS: BP 142/61; PULSE 86; BMI 27.3
== END 2024-07-01 09:24 | disposition home or self-care (01) ==
PROVIDERS: PCP Internal Medicine; Visit Provider Surgery
DX: C50.911 Malignant neoplasm of unspecified site of right female breast (principal); Z80.3 Family history of malignant neoplasm of breast
CPT/HCPCS: 99213; G2211

== ENCOUNTER → 2024-07-01 08:53 | Outpatient (BNVA) | payer MEDICARE, SELFPAY | PROVIDERS: PCP Internal Medicine; Visit Provider Surgery | DX: C50.911 Malignant neoplasm of unspecified site of right female breast (principal); Z80.3 Family history of malignant neoplasm of breast | CPT/HCPCS: 99212 ==

== ENCOUNTER 2024-07-07 10:54 | Outpatient (AMB) | payer MEDICARE, SELFPAY ==
[2024-07-07 11:12] VITALS: BP 122/62; PULSE 74; BMI 27.0
--- NOTE | 2024-07-07 11:12 | A.OFFVIS_ITS ---
Vital Signs 07/07/24 11:12 Height 5 ft 6 in Weight 167 lb 8.821 oz BMI 27.0 BP 122/62 Blood Pressure Location Lt brachial Position Sitting Pulse 74 Pulse Source Monitor Intake Visit Reasons: 6 mth fu Allergies lisinopril Allergy (Intermediate, Verified 07/01/24 09:10) cough Sulfa (Sulfonamide Antibiotics) Allergy (Intermediate, Verified 07/01/24 09:10) hives/swelling trimethoprim Allergy (Intermediate, Verified 07/01/24 09:10) RASH codeine Allergy (Mild, Verified 07/01/24 09:10) HEADACHES, headache Gadolinium-Containing Contrast Medi [Gadolinium-Containing Agents] Allergy (Mild, Verified 07/01/24 09:10) 14cc of Multihance meperidine Adverse Reaction (Mild, Verified 07/01/24 09:10) NAUSEA/VOMITING Latex Gloves Allergy (Intermediate, Uncoded 07/01/24 09:10) hives Medication List - Last Reconciled 07/07/24 by Piyush Vilchis MD amlodipine 5 mg PO DAILY apixaban 5 mg PO BID atorvastatin 20 mg PO DAILY cholecalciferol (vitamin D3) 25 mcg PO DAILY escitalopram oxalate 10 mg PO DAILY omeprazole 20 mg PO DAILY propranolol ER 80 mg PO DAILY valsartan 320 mg PO DAILY vitamins A,C,L-uuif-basjos 4,296 mcg-226 mg-90 mg (PreserVision AREDS) 1 cap PO BID HPI Comments Details: Iliana comes for follow-up. Overall she has been doing well. She denies any symptoms of prolonged palpitation irregular heartbeat. She is concerned about still having episodes of vasovagal symptoms, especially afraid that this happens when she is traveling by air. She gets anxious easily. She has chronic shortness which is not change. Denies any orthopnea PND, leg edema. Denies any exertional chest pain. No bleeding issues or neurologic events 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 Bronchiectasis Pulmonary nodules Incomplete RBBB Vasovagal syncope SVT (supraventricular tachycardia) HTN (hypertension) GERD (gastroesophageal reflux disease) Surgical History History of total right hip replacement (11/02/21) History of total left hip replacement (02/11/20) History of pacemaker (11/04/21) History of lumpectomy of right breast (~2006) Hx of knee surgery (~2010) Family History Father Cancer Afib Mother Cancer HOCM (hypertrophic obstructive cardiomyopathy) Social History Household Members: Family Housing: House Alcohol intake: current Alcohol intake frequency: a few times a week Alcohol type: wine Patient Tobacco Use Status: Never used Tobacco Review of Systems Const Denies weakness ENT Denies dizziness Card Denies chest pain, Denies chest pain with activity, Denies syncope, Denies rapid heart rate, Denies pedal edema, Denies edema, Denies leg edema, Denies lightheadedness, Denies palpitations, Denies dyspnea, Denies dyspnea on exertion and Denies orthopnea Resp Denies cough, Denies dyspnea and Denies dyspnea on exertion GI Denies hematochezia and Denies change in stool character Musc Denies abnormal gait, Denies muscle cramps, Denies muscle weakness, Denies numbness, Denies radiating pain into limb and Denies tingling Neuro Denies abnormal gait, Denies dizziness, Denies syncope, Denies numbness, Denies tingling and Denies weakness Endo Denies palpitations Physical Exam Vital Signs: Last Vital Signs Pulse 74 07/07/24 11:12 BP 122/62 07/07/24 11:12 BMI result Body Mass Index 27.0 Const General: cooperative, comfortable, no acute distress, alert, awake and well groomed Nutritional Appearance: average body habitus Orientation/consciousness: patient oriented x3 Limitations: no limitations Neck Neck: Yes trachea midline, Yes supple and Yes no JVD Chest Chest palpation & inspection: other (Pacemaker pocket is benign) Resp Effort & Inspection: normal respiratory effort Auscultation: clear to auscultation bilaterally and diminished lung sounds on the right throughout Cardio Jugular venous distension: no JVD Palpation: normal PMI Rate: regular rate Rhythm: regular rhythm Heart sounds: S1 normal heart sound present and S2 normal heart sound present GI Auscultation: normal bowel sounds Skin General skin exam: no rashes or lesions noted Neuro General: patient oriented x3 and no focal motor deficits Extrem General: Yes no clubbing, cyanosis or edema Office Procedures Cardiac Device Check Cardiac Device Check Details: Dual-chamber Medtronic pacemaker in place programmed in MVP mode with rate drop response at 45 beats per minute. Atrial and ventricular sensing was excellent. Atrial and ventricular pacing thresholds are stable and reprogrammed to provide adequate safety especially in the ventricular space. Pacing lead impedance is stable. Eight rate drop response episodes noted. Battery life is excellent at 13 years [id number] Cardiac Device Check, pacemaker dual lead Procedure code (CPT) selection complete EKG Details: EKG shows normal sinus rhythm with right bundle-branch block at 74 beats per minute [id number], Complete Assessment & Plan Assessment & Plan (1) Paroxysmal atrial fibrillation: Comment: No prior history of atrial fibrillation. She underwent a total hip replacement on 02/10 and was discharged on 02/11. That evening she had a syncopal event, EMS was called. Her EKG showed atrial fibrillation with rapid ventricular response. She was managed medically and converted to normal sinus rhythm. She was started on anticoagulation discharged the following day. She has had no known recurrence of atrial fibrillation. She denies any chest pains or heart palpitations. Chads Vasc score of 3 with age, female, hypertension. She is now on Eliquis for anticoagulation. She continues on her usual propanolol which was not changed in the setting of the AFib. Will order Holter monitor to assess for recurrence of AFib or other arrhythmia. Since she had no warning prior to her syncopal event will check a limited echo to reassess EF. Last echo done 07/07/2019 shows EF 60-65%, mild AR, mild MR, [id number] TR. preop nuclear stress test done 01/21/2020 shows no ischemia, EF greater than 75%. Emergency care if she has any syncopal events Code(s): I48.0 - Paroxysmal atrial fibrillation Category: Medical Plan: Paroxysmal atrial fibrillation which has remained overall suppressed with very minimal episodes. She has no significant symptoms related to it. At this point time continue propranolol therapy. Continue full oral anticoagulation Eliquis at 5 mg b.i.d.. Semi annual renal function test is recommended. Continue aggressive blood pressure control. Avoidance of stimulants was discussed. Stress mitigation strategies were discussed. No indication for antiarrhythmic drug therapy. (2) Cardiac pacemaker in situ: Comment: Dual-chamber Medtronic pacemaker placed in October of 2021 for post hip surgery sinus pause Code(s): Z95.0 - Presence of cardiac pacemaker Category: Medical Plan: Cardiac pacemaker in-situ, for significant sinus post. Pacemaker is working well. Reprogrammed for adequate functioning. Currently will monitor remotely in 3 months follow up in the clinic in 6 months (3) SVT (supraventricular tachycardia): Comment: no recent episodes of SVT. She continues on her usual propanolol. Code(s): I47.1 - Supraventricular tachycardia Category: Medical Plan: SVT without major clinical recurrence. Continue propranolol therapy. Vagal maneuvers were discussed. Avoidance of stimulants was discussed. No indication for ablation at this point in time. (4) HTN (hypertension): Comment: Good at present time. Medications reviewed and no changes Code(s): I10 - Essential (primary) hypertension Category: Medical Plan: Hypertension which is not controlled on current valsartan as well as propranolol and amlodipine therapy. Importance of good blood pressure control was discussed. Goal blood pressure less than 130/84. Low-salt diet was discussed for now. Advised to maintain adequate hydration. Advised to maintain activity level as tolerated. (5) Vasovagal syncope: Comment: history of vasovagal syncope with symptoms prior to events. Now with syncopal event as above with no warning sign. Updating echocardiogram and Holter Code(s): R55 - Syncope and collapse Category: Medical Plan: Patient with prior history of vasovagal syncope and continues to have episode especially on high stress environment when she is anxious. Discussed about stress mitigation strategies. Advise prior to having this situation to hydrate herself significantly including higher salt intake. Advise orthostatic precautions. Mechanism of vasovagal syncope was discussed. Follow up in the clinic in 6 months time, sooner p.r.n.. Thank you for allowing me to partake in her care Coding Level of Care Code Est Pt Level 4 (07164) Complex EM visit Add On G2211 Diagnoses Paroxysmal atrial fibrillation I48.0 Cardiac pacemaker in situ Z95.0 SVT (supraventricular tachycardia) I47.1 HTN (hypertension) I10 Vasovagal syncope R55 CPT Codes Cardiac Device Check - Cardiac Device 2: [id number] Cardiac Device Check, pacemaker dual lead ([id number]) EKG - CPT: 28159-[id number], Complete ([id number])
--- OUTSIDE RECORDS SUMMARY | 2024-07-07 15:47 | XMS_ITS | Clinical Summary ---
Author Organization [facility] Address [address] [place] [address] Phone Care Team Providers Care Airport Location Manager Name Role Phone Best Hart MD Primary Care Provider [phone] Encounters Date Type Department Care Team Description 05/28/2024 8:06 AM EST - 05/28/2024 11:59 PM EST Hospital Encounter [facility] CT Scan [address] [place] [address] Other nonspecific abnormal finding of lung field Discharge Disposition: Home or Self Care from Last 3 Months Social History Tobacco Use Types Packs/Day Years Used Date Smoking Tobacco: Never Assessed Sex and Gender Information Value Date Recorded Sex Assigned at Female 05/23/2024 3:15 PM EST Gender Identity Female 05/23/2024 3:15 PM EST Sexual Orientation Straight 05/23/2024 3: 15 PM EST Job Start Date Occupation Industry Not on file Not on file Not on file Plan of Treatment Health Maintenance Due Date Last Done Comments DTaP,Tdap,and Td Vaccines (1 - Tdap) 1964 Cholesterol Screening (Lipid Panel) 05/13/2022 Depression Screening 05/13/2022 Falls Risk Assessment 05/13/2022 Hepatitis C Screening 05/13/2022 Medicare Annual Wellness Visit 05/13/2022 Osteoporosis Screening (Bone Density Screening) 05/13/2022 Social Influencers of Health Screening 05/13/2022 Hypertension/CHF/CAD Annual BMP Blood Test 05/28/2024 Zoster Vaccines Completed 09/29/2021, 07/07/2021 RSV Immunization Patients 60+ Years Old Completed 02/14/2023 Pneumococcal Vaccine: 65+ Years Completed 04/02/2023 Influenza Vaccine Completed 04/04/2024, , 03/02/2022, Additional history exists COVID-19 Vaccine Completed 04/18/2024, 03/2023, 05/03/2022, Additional history exists HIB Vaccines Aged Out No longer eligi ble based on patient's age to complete this topic HPV Vaccines Aged Out No longer eligi ble based on patient's age to complete this topic Hepatitis A Vaccines Aged Out No long er eligible based on patient's age to complete this topic Hepatitis B Vaccines Aged Out No long er eligible based on patient's age to complete this topic IPV Vaccines Aged Out No longer eligi ble based on patient's age to complete this topic MMR Vaccines Aged Out No longer eligi ble based on patient's age to complete this topic Meningococcal ACWY Vaccine Aged Out N o longer eligible based on patient's age to complete this topic RSV Immunization Patients Under 20 months Aged Out No longer eligible based on patient's age to complete this topic Varicella Vaccines Aged Out No longer eligible based on patient's age to complete this topic Procedures Procedure Name Priority Date/Time Associated Diagnosis Comments CT CHEST WO CONTRAST Routine 05/28/2024 8:16 AM EST Other nonspecific abnormal finding of lung field from Last 3 Months Results * CT Chest wo Contrast (05/28/2024 8:16 AM EST) Anatomical Region Laterality Modality Body Computed Tomogra phy 05/29/2024 12:1 3 PM EST Impressions 05/29/2024 12:33 PM EST Multiple subcentimeter 5 mm and less bilateral pulmonary nodules. Atelectasis scarring in the lingula, right middle lobe and right upper lobe. Recommend follow-up in one year. -------- FINAL REPORT -------- Dictated By: Rolan Delaney Dictated Date: 05/29/2024 12:13 ET Assigned Physician: Rolan Delaney Reviewed and Electronically Signed By: Rolan Delaney Signed Date: 05/29/2024 12:33 ET Workstation ID: [id number] Transcribed By: Self Edit Transcribed Date: 05/29/2024 12:13 ET Narrative 05/29/2024 12:33 PM EST EXAMINATION: CT chest without contrast. CLINICAL INDICATION: Abnormal lung findings. COMPARISON: CT chest 11/28/2018. TECHNIQUE: 2.5 mm thin axial and reformatted 3 mm thin sagittal and coronal images of brain were obtained without contrast. Scanner: [employer] S.[employer] 64 slice VCT Dose reduction technique: ASIR (Adaptive statistical iterative reconstruction) and/or AEC (automated exposure control) Dose: total exam DLP 205 mGy/cm. FINDINGS: LUNGS: The lungs are well-expanded and clear acute pneumonic consolidation. There is reticular scarring or atelectasis in the lingula, right middle lobe and right upper lobe. There is a tubular calcified granuloma right upper lobe axial image 29/4, noncalcified two-view nodule left lower lobe lateral segment image 47/4, 200 and nodule within the left major fissure axial image 56/4, cluster of multiple 2 mm nodules in right lower lobe axial image 58/4 and 59/4., 2 mm nodule left lower lobe axial image 66/4, 3 mm nodule in the lingula image 65/4, left lower lobe image 65/4, 68/4, subpleural-based 2 mm nodule left lower image 70/4 and several smaller nodules in the right and left lower lobe. Mediastinum: Heart size and the great vessels are normal caliber. Central trachea and the bronchi are widely patent. Thyroid lobes are symmetrical and normal. There is small shotty lymph nodes in the aortic window and paratracheal space. Pleura: There is no pleural effusion, thickening or calcification. Axilla: No abnormal size axillary lymph nodes seen. The chest wall is unremarkable. There is a left upper anterior chest wall pacer hardware. Upper abdomen: Visualized liver, spleen, pancreas and bilateral adrenal glands are unremarkable. Osseous structures: No aggressive lytic or sclerotic process. Procedure Note Rolan Delaney MD - 05/29/2024 EXAMINATION: CT chest without contrast. CLINICAL INDICATION: Abnormal lung findings. COMPARISON: CT chest 11/28/2018. TECHNIQUE: 2.5 mm thin axial and reformatted 3 mm thin sagittal andcoronal images of brain were obtained without contrast. Scanner: [employer] 64 slice VCT Dose reduction technique: ASIR (Adaptive statistical iterativereconstruction) and/or AEC (automated exposure control) Dose: total exam DLP 205 mGy/cm. FINDINGS: LUNGS: The lungs are well-expanded and clear acute pneumonicconsolidation. There is reticular scarring or atelectasis in the lingula,right middle lobe and right upper lobe. There is a tubular calcifiedgranuloma right upper lobe axial image 29/4, noncalcified two-view noduleleft lower lobe lateral segment image 47/4, 200 and nodule within the leftmajor fissure axial image 56/4, cluster of multiple 2 mm nodules in rightlower lobe axial image 58/4 and 59/4., 2 mm nodule left lower lobe axialimage 66/4, 3 mm nodule in the lingula image 65/4, left lower lobe image65/4, 68/4, subpleural-based 2 mm nodule left lower image 70/4 and severalsmaller nodules in the right and left lower lobe. Mediastinum: Heart size and the great vessels are normal caliber. Centraltrachea and the bronchi are widely patent. Thyroid lobes are symmetricaland normal. There is small shotty lymph nodes in the aortic window andparatracheal space. Pleura: There is no pleural effusion, thickening or calcification. Axilla: No abnormal size axillary lymph nodes seen. The chest wall isunremarkable. There is a left upper anterior chest wall pacer hardware. Upper abdomen: Visualized liver, spleen, pancreas and bilateral adrenalglands are unremarkable. Osseous structures: No aggressive lytic or sclerotic process. IMPRESSION: Multiple subcentimeter 5 mm and less bilateral pulmonary nodules. Atelectasis scarring in the lingula, right middle lobe and right upperlobe. Recommend follow-up in one year. -------- FINAL REPORT -------- Dictated By: Rolan Delaney Dictated Date: 05/29/2024 12:13 ET Assigned Physician: Rolan Delaney Reviewed and Electronically Signed By: Rolan Delaney Signed Date: 05/29/2024 12:33 ET Workstation ID: [id number] Transcribed By: Self Edit Transcribed Date: 05/29/2024 12:13 ET Tenzin Umaña MD IMG CT PROCEDURES from Last 3 Months Advance Directives Documents on File Type Date Recorded Patient Clinical Nurse Reviewer Expl anation Health Care Decision (hx) 02/13/2017 AD MARK DIRECTIVE Health Care Decision (hx) 02/13/2017 AD MARK DIRECTIVE Health Care Decision (hx) 02/13/2017 AD MARK DIRECTIVE Care Teams Airport Location Manager Relationship Specialty Start Date End Date Best Hart MD [address] [place] [id number] PCP - General Internal Medicine 11/15/12
== END 2024-07-07 11:36 | disposition home or self-care (01) ==
PROVIDERS: PCP Internal Medicine; Visit Provider Internal Medicine Cardiovascular Disease
DX: I48.0 Paroxysmal atrial fibrillation (principal); Z95.0 Presence of cardiac pacemaker; I47.10 Supraventricular tachycardia, unspecified; I10 Essential (primary) hypertension; R55 Syncope and collapse
CPT/HCPCS: 93010; 93280; 99214; G2211

== ENCOUNTER 2024-07-07 11:42 | Outpatient (REF) | payer MEDICARE, SELFPAY ==
--- NOTE | ~2024-07-07 | MM_ITS ---
EXAMINATION: MM SCREENING DIGITAL BREAST TOMOSYNTHESIS, BILATERAL CLINICAL INFORMATION: Screening. Asymptomatic. COMPARISON: Mammography: Comparison is made with available priors TECHNIQUE: Digital breast mammography with tomosynthesis is performed in both the craniocaudal and mediolateral oblique views along with computer-aided detection (CAD). FINDINGS: The breasts are heterogeneously dense, which may obscure small masses (ACR BI-RADS breast composition Category c). Bilateral postsurgical changes are stable. Left marker clip. There are no significant masses, abnormal calcifications, or other abnormalities. MM/MM tomosynthesis screening BI IMPRESSION: No mammographic evidence of malignancy. ASSESSMENT: BI-RADS BI-RADS 2 - Benign Findings RECOMMENDATION: Routine annual mammography screening. 1 year F/U This examination should not preclude the clinical evaluation of a suspicious palpable abnormality. This patient's information was entered into a reminder system with a target due date for their next mammogram. Electronically signed by: Sharlene Cerna DO 07/15/2024 04:50 PM LIZETH
== END 2024-07-07 11:43 | disposition home or self-care (01) ==
LOC: HO.MAMMO 11:42
PROVIDERS: PCP Internal Medicine; Visit Provider Internal Medicine
DX: Z12.31 Encounter for screening mammogram for malignant neoplasm of breast (principal); Z80.3 Family history of malignant neoplasm of breast; I48.0 Paroxysmal atrial fibrillation; I47.10 Supraventricular tachycardia, unspecified; I10 Essential (primary) hypertension; R55 Syncope and collapse; Z95.0 Presence of cardiac pacemaker
CPT/HCPCS: 77063; 77067; 93005; 93280; 99212

== ENCOUNTER → 2024-07-07 12:45 | Outpatient (BNV) | payer MEDICARE, SELFPAY | PROVIDERS: PCP Internal Medicine; Visit Provider Internal Medicine | DX: Z12.31 Encounter for screening mammogram for malignant neoplasm of breast (principal) | CPT/HCPCS: 77063; 77067 ==

== ENCOUNTER 2024-07-15 08:41 | Outpatient (AMB) | payer MEDICARE, SELFPAY ==
[2024-07-15 08:46] VITALS: BP 138/78; PULSE 72; O2SAT 95; BMI 27.8
--- NOTE | 2024-07-15 08:46 | A.OFFVIS_ITS ---
Vital Signs 07/15/24 08:46 Height 5 ft 6 in Weight 171 lb 15.369 oz BMI 27.8 BP 138/78 Blood Pressure Location Lt brachial Position Sitting Pulse 72 Pulse Source Pulse Oximeter Pulse Oximetry (%) 95 Oxygen Delivery Method Room Air Intake Visit Reasons: COPD Allergies lisinopril Allergy (Intermediate, Verified 07/15/24 08:54) cough Sulfa (Sulfonamide Antibiotics) Allergy (Intermediate, Verified 07/15/24 08:54) hives/swelling trimethoprim Allergy (Intermediate, Verified 07/15/24 08:54) RASH codeine Allergy (Mild, Verified 07/15/24 08:54) HEADACHES, headache Gadolinium-Containing Contrast Medi [Gadolinium-Containing Agents] Allergy (Mild, Verified 07/15/24 08:54) 14cc of Multihance meperidine Adverse Reaction (Mild, Verified 07/15/24 08:54) NAUSEA/VOMITING Latex Gloves Allergy (Intermediate, Uncoded 07/15/24 08:54) hives HPI Comments Details: The patient is a 78-year-old woman with a known history of breast cancer status post radiation in addition to non tuberculosis mycobacteria infection and also history of bronchiectasis. She has also had pulmonary nodules. For the last several years she has been taking care of her who had been very ill for many years. Ultimately went on hospice care and he did pass away the end of May of 2020. In the meantime sometime in the fall she did have a hip replacement. The surgery very well and she recovered very well. Unfortunately, when she went home she went to the bathroom at night and she felt well initially but then she syncopized hurting her head and causing her to have a laceration on her head. As part of workup at [facility] she did have a CT scan of the chest. It appeared that she did have the underlying bron chiectasis in the radiation noted before. However, they also documented a 1 cm nodular density in the right hemithorax. We were able to look back at previous CT scans that she has had back in 2016 at [facility] where that nodular density was not present. It may be indeed some mucus plugging due to her significant bronchiectasis. However, a CT scan will be warranted at this time. In the meantime she does complaint of increasing cough with some chest congestion. She is not using any maintenance inhalers at this time. She is also complaining of a postnasal drip. The patient also may indeed have some allergies. Will treat her postnasal drip with fluticasone in addition to having her continue her short-acting beta agonist as needed. However will hold off in additional medicine to she undergoes her CT scan of the chest and also pulmonary function studies. 10/09/2020 the patient is here for pulmonary follow-up visit. Overall she is doing well. Denies any significant coughing or shortness of breath. We did review again her CT scan from [facility] back in the fall of 2019 demonstrating a nodular density in the right middle lobe area. She also had bronchiectatic changes that were consistent with her non tuberculosis mycobacteria infection. Therefore, she did have a repeat CT scan of the chest and we reviewed it as well. It appeared that the right middle lobe nodular density resolved likely from mucus plugging. 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 The patient also underwent pulmonary function studies which were reassuring without any obstructive nor restrictive ventilatory defects. However, she did have a moderate diffusion impairment out of proportion to her findings of the CT scan. Therefore she is to continue her respiratory therapy but adding CPT with a flutter valve and hypertonic saline via nebulizer may be helpful in improving her gas exchange at this time. 10/21/2020 the patient is here for pulmonary follow-up visit. She did try the CPT with hypertonic saline but only resulted in worsening symptoms. After several days of using it she decided to stop it because of his breathing was getting worse. When she stop that she was back to feeling relatively normal. She continues have a cough but minimal expectoration. She is going to start walking more to allow the exercise help her with chest physical therapy. In the meantime will hold off on hypertonic saline. Otherwise patient is without any other complaints. 04/28/2021 the patient is here for a pulmonary follow-up visit. The patient is doing relatively well. Although, she is developing worsening productive cough. Usually worse in the morning. She does have an Acapella valve that she can use her own expectorate. We did talk about considering a percussion vest if is not helpful. Will try to collect sputum samples both for AFB and also regular cultures to make sure she is not colonized with any bacterial organisms such as Pseudomonas. In the meantime the patient is going to undergo a total hip replacement. The patient also has planned follow-up for her history of breast cancer. We did review her last CT scan of the chest that was done in the spring demonstrating multiple pulmonary nodules. In addition to that the patient does have evidence of bronchiectasis primarily in the right middle lobe area. In view of her ongoing and worsening symptoms we will plan to repeat a CT scan a year from her last CT scan in the spring. 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 09/21/2021 the patient is here for a pulmonary follow-up visit. Overall the patient has been feeling well from a respiratory status. She denies any limitations from a respiratory 20 viewed. She does have a cough that is chronic for her. She has been limited from a exercise standpoint because of her bad hip. She did have 1 hip replacement no be plan to have her 2nd. Hopefully then she can start exercising more regularly. Otherwise I did give her some recommendations of exercise she can use with her upper body. The patient did have a recent CT scan of the chest that we personally reviewed. Appears that she does have little more progression of the bronchiectatic disease in the tree in budding in the pulmonary nodules consistent with her non tuberculosis mycobacterial disease. We did try to get a sputum culture but she patient was unable to bring up any. We did talk about considering a bronchoscopy. But right now she is currently feeling well and she will be going to undergo surgery so at this point we can hold off. If however she starts developing mucus production she can give me a sputum sample again. Otherwise if she is not able to give a sputum sample when she is more congested and more symptomatic would consider bronchoscopy with Deep respiratory cultures. In addition to that will have to continue monitoring the pulmonary nodules. If the nodules continue growing then that may also be an issue as far as considering concomitant conditions. Again clinically she is doing well will continue to provide her with respiratory therapy. She did not really feel the hypertonic saline was effective for her. She is going to continue using the Nebulizer with levo albuterol and also use the Acapella valve. 04/19/2022 the patient is here for a pulmonary follow-up visit. She continues to do very well a respiratory status. She is very busy taking care of both her mother and father. They both have significant health issues and they live at home with her. She is recovering well from her hip surgery. However, due to the fact that she is taking care of her elderly parents and doing her activities of daily living she did develop sciatica. This has caused her significant discomfort. She is currently undergoing physical therapy. Prior to that she was exercising regularly. We did review her pulmonary function studies demonstrating some evidence of obstruction although clinically in stable condition. The patient also had a CT scan of the chest back in May 2021 demonstrating pulmonary nodules and worsening Airway disease. Will plan to repeat the CT scan in 4-6 months. If her symptoms were to worsen prior to that she is to call the office in order for an earlier assessment. 10/23/2022 the patient is here for pulmonary follow-up visit. The patient is complaining of a dry cough. Moderate severity. She started developing the c ough after having COVID-19. She quarantine at home during her COVID infection. Was not a severe infection. The cough is been nagging her. Denies any significant shortness of breath or wheezing or chest congestion. She has tried multiple things including prednisone and also Tessalon Perles. Does over partially helpful. The patient has a cruise planned for the end of the week and she wants to feel better. I will send her additional medications to the pharmacy. She does have some lower extremity edema that is not clear in etiology. She denies any significant pain or tenderness on the cast and appears to be symmetrical. She has been more sedentary since the loss of her father. In addition to that we did review her recent CT scan of the chest from September 2022 which demonstrated stable bronchiectatic changes tree in bud. She appears to have a little bit more tree-in-bud and micronodular densities on her left hemithorax. Will go and repeat the CT scan in a year's time. The patient appears to be fairly asymptomatic besides the hacky cough so therefore hold off on any treatment at this time. 02/02/2023 the patient is here for a pulmonary follow-up visit. She actually has been doing very well from a respiratory status. Denies any significant shortness of breath or cough. She does have a chest PT and she should be doing it daily. We did review her last CT scan of the chest actually she had to 1 in September 2022 and another 1 more recently in December 2022. does most recent 1 was done at [facility] and was primarily done because she has a pacemaker and was just to check her cardiac leads which appear to be in place. That CT scan still demonstrated the peribronchial nodular densities the bronchiectasis that she has had for many years. When compared to 2019 no significant changes in the pulmonary nodules or other bronchiectatic changes. Therefore hold off on additional imaging at this time. Will reassess any further imaging needed in a year's time. If the patient develops any worsening symptoms prior to that she is to call the office for an earlier assessment. 07/15/2024 the patient is here for pulmonary follow-up visit. Overall the patient is doing well. She has noticed episodes of shortness of breath at times specially at nighttime. Also with wheezing. Intermittently. She is also been a little more short of breath with walking especially when she is walking on a faster pace. She does have a rescue inhaler but she does not like to use it since it causes her to have tremors she does not like the feeling. The patient will benefit from a long-acting inhaler to provide her some maintenance and hopefully decrease the need for short-acting beta agonist effect. Specially with the adverse symptoms. She did have a CT scan of the chest done at [facility] in 05/28/2024. It was compared to a CT scan from 2019. Her pulmonary nodules are stable no evidence of any active disease which is reassuring. Overall the patient is doing well she try the inhaler and will follow-up in a year's time. If any new issues arise the patient will call for an earlier assessment. 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 Bronchiectasis Pulmonary nodules Incomplete RBBB Vasovagal syncope SVT (supraventricular tachycardia) HTN (hypertension) GERD (gastroesophageal reflux disease) Surgical History History of total right hip replacement (11/02/21) History of total left hip replacement (02/11/20) History of pacemaker (11/04/21) History of lumpectomy of right breast (~2006) Hx of knee surgery (~2010) Family History Father Cancer Afib Mother Cancer HOCM (hypertrophic obstructive cardiomyopathy) Social History Household Members: Family Housing: House Alcohol intake: current Alcohol intake frequency: a few times a week Alcohol type: wine Patient Tobacco Use Status: Never used Tobacco Review of Systems Const Denies night sweats and Denies weight gain ENT Denies change in voice, Denies lip swelling, Denies mouth pain, Reports nasal c ongestion, Reports nasal discharge, Reports post nasal drip and Denies tongue swelling Card Denies chest pain and Reports dyspnea on exertion Resp Denies chest congestion, Reports cough, Denies hemoptysis, Denies excessive phlegm production and Reports dyspnea on exertion GI Denies abdominal pain Musc Reports as per HPI, Reports back pain, Reports arthralgias, Reports limited range of motion and Reports radiating pain into limb Neuro Denies Neuro-related abnormal movements Psych Denies no additional complaints Ryan/Lymph Denies easy bleeding and Denies lymphadenopathy Aller/Immun Denies lip swelling and Denies tongue swelling Physical Exam Vital Signs: Last Vital Signs Pulse 72 07/15/24 08:46 BP 138/78 07/15/24 08:46 Pulse Ox 95 07/15/24 08:46 Oxygen Delivery Method Room Air 07/15/24 08:46 BMI result Body Mass Index 27.8 Const General: alert Neck Neck: Yes normal visual inspection, Yes full ROM and Yes no lymphadenopathy Chest Chest palpation & inspection: normal inspection of the chest Resp Auscultation: diminished lung sounds Cardio Rate: regular rate Rhythm: regular rhythm Heart sounds: S1 normal heart sound present and S2 normal heart sound present GI Palpation (GI): Soft to palpation and nontender Auscultation: normal bowel sounds Skin General skin exam: rashes and/or lesions noted Extrem General: Yes edema Assessment & Plan Assessment & Plan (1) 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: Code(s): J70.1 - Chronic and other pulmonary manifestations due to radiation Category: Medical (2) Mycobacterial disease: Comment: smoldering Code(s): A31.9 - Mycobacterial infection, unspecified Category: Medical (3) Bronchiectasis: Code(s): J47.9 - Bronchiectasis, uncomplicated Category: Medical Qualifiers: Bronchiectasis type: uncomplicated Qualified Code(s): J47.9 - Bronchiectasis, uncomplicated (4) Pulmonary nodules: Comment: Has new micronodules on the left hemithorax Code(s): R91.8 - Other nonspecific abnormal finding of lung field Category: Medical Plan start Wixela Continue short-acting beta agonist as needed Xopenex via neb BID CPT with flutter valve Tessalon pearls as needed CT chest stable 2018 to 2023. 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
--- OUTSIDE RECORDS SUMMARY | 2024-07-15 08:56 | XMS_ITS | Clinical Summary ---
Author Organization [facility] Address [address] [place] [address] Phone Care Team Providers Care Piler Name Role Phone Best Hart MD Primary Care Provider Encounters Date Type Department Care Team Description 05/28/2024 8:06 AM EST - 05/28/2024 11:59 PM EST Hospital Encounter [facility] CT Scan [address] [place] [address] Other nonspecific abnormal finding of [...] Signed Date: 05/29/2024 12:33 ET Workstation ID: [id number] Transcribed By: Self Edit Transcribed Date: 05/29/2024 12:13 ET Narrative 05/29/2024 12:33 PM EST EXAMINATION: CT chest without contrast. CLINICAL INDICATION: Abnormal lung findings. COMPARISON: CT chest 11/28/2018. TECHNIQUE: 2.5 mm thin axial and reformatted 3 mm thin sagittal and coronal images of brain were obtained without contrast. Scanner: [id number] 64 slice VCT Dose reduction technique: ASIR [...] Signed Date: 05/29/2024 12:33 ET Workstation ID: [id number] Transcribed By: Self Edit Transcribed Date: 05/29/2024 12:13 ET Tenzin Umaña MD IMG CT PROCEDURES from Last 3 Months Advance Directives Documents on File Type Date Recorded Patient Razor Grinder Expl anation Health Care Decision (hx) 02/13/2017 AD MARK DIRECTIVE Health Care Decision (hx) 02/13/2017 AD MARK DIRECTIVE Health Care Decision (hx) 02/13/2017 AD MARK DIRECTIVE Care Teams Piler Relationship Specialty Start Date End Date Best Hart MD [address] [place] [id number] PCP - General Internal Medicine 11/15/12
--- OUTSIDE RECORDS SUMMARY | 2024-07-15 08:57 | XMS_ITS | Continuity of Care Document ---
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 [address], [place], [place], [id number], [place]. tel:[phone] Referring Provider: Burton Unger, [address], [place], [address]. Family History Family Member Type Diagnosis Age At Onset No Information Payers Payer name Insurance type Covered republican ID Farheen cartagena(sJoie Campos GBA - J1 [facility] [id number] [employer] [id number] Social History Type Description Quantity Date Captured Comments Sex Female Smoking Status No Information Chief Complaint And Reason For Visit No Information Reason For Referral Reason For Referral No Information History Of Present Illness Encounter Date Complaint History Of Prese nt Illness No Information Functional Status Date Functional Assessmen t No Information Instructions Date Instruction Additional Infor mation No Information Assessments Type Assessment Date No Information Patient Care Teams Name Effective Dates (start - stop) Status Members No Information
== END 2024-07-15 09:17 | disposition home or self-care (01) ==
PROVIDERS: PCP Internal Medicine; Visit Provider Hospitalist
DX: J70.1 Chronic and other pulmonary manifestations due to radiation (principal); A31.9 Mycobacterial infection, unspecified; J47.9 Bronchiectasis, uncomplicated; R91.8 Other nonspecific abnormal finding of lung field
CPT/HCPCS: 99214; G2211

== ENCOUNTER → 2024-07-15 08:41 | Outpatient (BNVA) | payer MEDICARE, SELFPAY | PROVIDERS: PCP Internal Medicine; Visit Provider Hospitalist | DX: J70.1 Chronic and other pulmonary manifestations due to radiation (principal); J47.9 Bronchiectasis, uncomplicated; A31.9 Mycobacterial infection, unspecified; R91.8 Other nonspecific abnormal finding of lung field | CPT/HCPCS: 99212 ==

== ENCOUNTER → 2024-12-26 23:59 | Outpatient (BNV) | payer MEDICARE, SELFPAY ==
--- NOTE | 2025-01-02 08:43 | A.OFFVIS_ITS ---
Intake Visit Reasons: Remote device check- Medtronic Allergies lisinopril Allergy (Intermediate, Verified 07/15/24 08:54) cough Sulfa (Sulfonamide Antibiotics) Allergy (Intermediate, Verified 07/15/24 08:54) hives/swelling trimethoprim Allergy (Intermediate, Verified 07/15/24 08:54) RASH codeine Allergy (Mild, Verified 07/15/24 08:54) HEADACHES, headache Gadolinium-Containing Contrast Medi (Gadolinium-Containing Agents) Allergy (Mild, Verified 07/15/24 08:54) 14cc of Multihance meperidine Adverse Reaction (Mild, Verified 07/15/24 08:54) NAUSEA/VOMITING Latex Gloves Allergy (Intermediate, Uncoded 07/15/24 08:54) hives [facility] Medical History 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 pacemaker in situ Paroxysmal atrial fibrillation Infiltrating ductal carcinoma of right breast 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 Bronchiectasis Pulmonary nodules Incomplete RBBB Vasovagal syncope SVT (supraventricular tachycardia) HTN (hypertension) GERD (gastroesophageal reflux disease) Surgical History History of total right hip replacement (11/02/21) History of total left hip replacement (02/11/20) History of pacemaker (11/04/21) History of lumpectomy of right breast (~2006) Hx of knee surgery (~2010) Family History Father Cancer Afib Mother Cancer HOCM (hypertrophic obstructive cardiomyopathy) Social History Household Members: Family Housing: House Alcohol intake: current Alcohol intake frequency: a few times a week Alcohol type: wine Patient Tobacco Use Status: Never used Tobacco Office Procedures Cardiac Device Check Cardiac Device Check Details: Remote pacemaker report generated 12/23/2024. Pacemaker function is adequate [id number] Cardiac Device Interrogation, pacemaker Procedure code (CPT) selection complete Assessment & Plan Assessment & Plan (1) Cardiac pacemaker in situ: Comment: Dual-chamber Medtronic pacemaker placed in October of 2021 for post hip surgery sinus pause Code(s): Z95.0 - Presence of cardiac pacemaker Category: Medical Plan: See above Coding Level of Care Code Procedure Only Diagnoses Cardiac pacemaker in situ Z95.0 CPT Codes Cardiac Device Check - Cardiac Device 12: [id number] Cardiac Device Interrogation, pacemaker ([id number])
== END ==
PROVIDERS: PCP Internal Medicine; Visit Provider Internal Medicine Cardiovascular Disease
DX: I49.9 Cardiac arrhythmia, unspecified (principal); Z95.0 Presence of cardiac pacemaker
CPT/HCPCS: 93294

== ENCOUNTER 2025-01-01 09:58 | Outpatient (AMB) | payer MEDICARE, SELFPAY ==
--- NOTE | 2025-01-01 10:31 | A.OFFVIS_ITS ---
Vital Signs 01/01/25 10:32 Height 5 ft 6 in Weight 158 lb 11.725 oz BMI 25.6 BP 120/72 Blood Pressure Location Lt brachial Position Sitting Pulse 70 Intake Visit Reasons: 6m follow up Intake Note: 6 month follow-up with Diveboard doing good Site Lead Required: No Allergies lisinopril Allergy (Intermediate, Verified 07/15/24 08:54) cough Sulfa (Sulfonamide Antibiotics) Allergy (Intermediate, Verified 07/15/24 08:54) hives/swelling trimethoprim Allergy (Intermediate, Verified 07/15/24 08:54) RASH codeine Allergy (Mild, Verified 07/15/24 08:54) HEADACHES, headache Gadolinium-Containing Contrast Medi (Gadolinium-Containing Agents) Allergy (Mild, Verified 07/15/24 08:54) 14cc of Multihance meperidine Adverse Reaction (Mild, Verified 07/15/24 08:54) NAUSEA/VOMITING Latex Gloves Allergy (Intermediate, Uncoded 07/15/24 08:54) hives Medication List - Last Reconciled 01/01/25 by Piyush Vilchis MD amlodipine 5 mg PO DAILY apixaban 5 mg PO BID atorvastatin 20 mg PO DAILY cholecalciferol (vitamin D3) 25 mcg PO DAILY escitalopram oxalate 20 mg PO DAILY fluticasone propion-salmeterol 250-50 mcg/dose (Wixela Inhub) 1 inh inhalation Q12H 30 days omeprazole 20 mg PO DAILY propranolol ER 80 mg PO DAILY valsartan 320 mg PO DAILY vitamins A,C,O-krxy-figdvr 4,296 mcg-226 mg-90 mg (PreserVision AREDS) 1 cap PO BID HPI Comments Details: Iliana comes for follow-up. Since I last saw her she had right knee surgery replacement. She has some tough time in the 1st 2 weeks. Following that she had personal strategy with her younger brother passing away suddenly. She says she is very distress at that time. She denies any symptoms of syncope. Denies symptoms of prolonged palpitation irregular heartbeat. No bleeding issues or neurologic events. She says she is still not able to exercise as much due to the left knee issues for which she is planning surgery in near future. She denies any chest pain. No orthopnea, PND, leg edema. 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 Bronchiectasis Pulmonary nodules Incomplete RBBB Vasovagal syncope SVT (supraventricular tachycardia) HTN (hypertension) GERD (gastroesophageal reflux disease) Surgical History History of total right hip replacement (11/02/21) History of total left hip replacement (02/11/20) History of pacemaker (11/04/21) History of lumpectomy of right breast (~2006) Hx of knee surgery (~2010) Family History Father Cancer Afib Mother Cancer HOCM (hypertrophic obstructive cardiomyopathy) Social History Household Members: Family Housing: House Alcohol intake: current Alcohol intake frequency: a few times a week Alcohol type: wine Patient Tobacco Use Status: Never used Tobacco Review of Systems Const Denies chills, Denies fatigue, Denies fever(s), Denies frequent falls, Denies weakness, Denies weight gain and Denies weight loss ENT Denies dizziness Card Denies chest pain, Denies leg edema, Denies lightheadedness, Denies palpitations, Denies dyspnea, Denies dyspnea on exertion, Denies orthopnea and Denies other (loss of consciousness) Resp Denies cough, Denies dyspnea and Denies dyspnea on exertion GI Denies hematochezia and Denies change in stool character Musc Denies abnormal gait, Denies muscle weakness, Denies numbness, Denies radiating pain into limb and Denies tingling Neuro Denies abnormal gait, Denies dizziness, Denies frequent falls, Denies numbness, Denies tingling and Denies weakness Endo Denies fatigue and Denies palpitations Physical Exam Vital Signs: Last Vital Signs Pulse 70 01/01/25 10:32 BP 120/72 01/01/25 10:32 BMI result Body Mass Index 25.6 Const General: cooperative, comfortable, no acute distress, alert, awake and well groomed Nutritional Appearance: average body habitus Orientation/consciousness: patient oriented x3 Limitations: no limitations Neck Neck: Yes trachea midline, Yes supple and Yes no JVD Chest Chest palpation & inspection: other (Pacemaker pocket is benign) Resp Effort & Inspection: normal respiratory effort Auscultation: clear to auscultation bilaterally and diminished lung sounds on the right throughout Cardio Jugular venous distension: no JVD Palpation: normal PMI Rate: regular rate Rhythm: regular rhythm Heart sounds: S1 normal heart sound present and S2 normal heart sound present GI Auscultation: normal bowel sounds Skin General skin exam: no rashes or lesions noted Neuro General: patient oriented x3 and no focal motor deficits Extrem General: Yes no clubbing, cyanosis or edema Office Procedures Cardiac Device Check Cardiac Device Check Details: Dual-chamber Medtronic pacemaker in place. Programmed in MVP mode at 45 beats per minute with rate drop response. She is about 27 rate drop response. Notice multiple high ventricular rate mostly on October 11, she says she is very distressed that time. Appears to be mostly sinus tachycardia. No atrial fibrillation noted. Atrial ventricular pacing thresholds adequate and reprogrammed to provide adequate safety as well as enhance battery life. Atrial ventricular sensing is adequate. Pacing lead impedance is stable. Battery life is at 12.3 years [id number] Cardiac Device Check, pacemaker dual lead Procedure code (CPT) selection complete Assessment & Plan Assessment & Plan (1) Paroxysmal atrial fibrillation: Comment: No prior history of atrial fibrillation. She underwent a total hip replacement on 02/10 and was discharged on 02/11. That evening she had a syncopal event, EMS was called. Her EKG showed atrial fibrillation with rapid ventricular response. She was managed medically and converted to normal sinus rhythm. She was started on anticoagulation discharged the following day. She has had no known recurrence of atrial fibrillation. She denies any chest pains or heart palpitations. Chads Vasc score of 3 with age, female, hypertension. She is now on Eliquis for anticoagulation. She continues on her usual propanolol which was not changed in the setting of the AFib. Will order Holter monitor to assess for recurrence of AFib or other arrhythmia. Since she had no warning prior to her syncopal event will check a limited echo to reassess EF. Last echo done 07/07/2019 shows EF 60-65%, mild AR, mild MR, [id number]-[id number] TR. preop nuclear stress test done 01/21/2020 shows no ischemia, EF greater than 75%. Emergency care if she has any syncopal events Code(s): I48.0 - Paroxysmal atrial fibrillation Category: Medical Plan: Paroxysmal atrial fibrillation which has remained suppressed and has done well. Continue rhythm control approach. Continue propranolol therapy. Avoidance of stimulants was discussed. No indication for antiarrhythmic drug therapy as there has been no clinical recurrence. Continue full oral anticoagulation, currently on Eliquis 5 mg b.i.d.. Semi annual renal function test is recommended. Also has SVT which has remained suppressed. High ventricular rate noted most recently are most likely suggestive of sinus tachycardia. (2) Cardiac pacemaker in situ: Comment: Dual-chamber Medtronic pacemaker placed in October of 2021 for post hip surgery sinus pause Code(s): Z95.0 - Presence of cardiac pacemaker Category: Medical Plan: Cardiac pacemaker in-situ for sinus pauses with prior history of vasovagal syncope. She most likely has cardio inhibitory from vasovagal syncope. Has done well with pacer therapy. Will continue monitor pacer by remote telemetry. (3) HTN (hypertension): Comment: Good at present time. Medications reviewed and no changes Code(s): I10 - Essential (primary) hypertension Category: Medical Plan: Hypertension which is currently well optimized advised to monitor blood pressure at home maintain a log. Goal blood pressure less than 130/84. Low-salt diet was discussed. Participate in stress mitigation strategies. Encouraged to maintain activity level as tolerated. Will follow up in the clinic in 6 months time, sooner p.r.n.. Thank you for allowing me to partake in her care Coding Level of Care Code Est Pt Level 4 (87931) Complex EM visit Add On G2211 Diagnoses Paroxysmal atrial fibrillation I48.0 Cardiac pacemaker in situ Z95.0 HTN (hypertension) I10 CPT Codes Cardiac Device Check - Cardiac Device 2: [id number] Cardiac Device Check, pacemaker dual lead ([id number])
[2025-01-01 10:32] VITALS: BP 120/72; PULSE 70; BMI 25.6
--- OUTSIDE RECORDS SUMMARY | 2025-01-01 10:44 | XMS_ITS | Patient Health Record ---
Author Organization [facility] Address [address] [place] [address] Care Team Providers Care Rn Gynecology Name Role Phone Best Hart MD Primary Care Provider Unavailab Cydney Clark Unavailable [phone] Allergies Allergen (clinical drug ingredient) Drug/Non Drug Allergy documented on EMR Reaction Allergy Type Onset Date Status sulfamethoxazole / trimethoprim Bactrim hives Drug Allergy Active meperidine Demerol upset stomach Drug Allergy Ac tive sulfa hives Drug Allergy Active codeine Codeine vomiting Drug Allergy Active IVP dye Unknown Drug Allergy Active Adhesive Tape hives, rash Drug Allergy A ctive Latex hives, rash Drug Allergy Activ e Reason For Referral No Information Medications Medication SIG (Take, Route, Frequency, Duration) Notes Start Date End Date Status Losartan Potassium 25 MG Orally Active Atorvastatin Calcium Active Aspirin Active PreserVision AREDS A ctive Omeprazole Active Escitalopram Oxalate 10 MG Orally Active PreserVision AREDS A ctive Vitamin D 1000 UNIT Orally Active Sotalol HCl (AF) 80 MG Orally Active Social History Tobacco Use: Social History Observation Description Date Details (start date - stop date) Never Smoker NA - NA Tobacco Use/Smoking Question Answer Notes Are you a: nonsmoker Additional Findings: Tobacco Non-User Current no n-smoker Alcohol Screen Question Answer Notes Did you have a drink contain ing alcohol in the past year? Yes How many drinks did you have on a typical day when you were drinking in the past year? 1 or 2 drinks (0 point) Points 0 Interpretation Negative Tobacco use other than smoking: Question Answer Notes Are you an other tobacco user? 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) Active confirmed Plan Of Treatment Next Appt Details Provider Name:Cydney Murray , 03/03/2025 09:30:00 AM, [address] [facility], [place], [address], Insurance Providers Payer Name Payer Address Payer Phone Subscriber Number Group Number Insured Name Patient Relationship to Insured Coverage Start Date Coverage End Date Medicare National [employer] [address] [place] [address] [id number] Iliana Ochoa Self - patient is the insured AARP Secondary to Medicare [address] [place] [address] [id number] Iliana Ochoa Self - patient is the insured Medical (General) History Medical History History ICD Code Anxiety Arthritis asthma Back,Hip,and Knee pain Cancer Chicken pox Cholesterol Cataracts Heart disease Hypertension Macular degeneration Measles Vasa Vagle Reflex Surgical History Surgery Date(Month/Year) breast reconstruction breast surgeries 1981, 1988, 2000 appendectomy 11/2006 knee, meniscus 2001, 2010 section 1977 endoscopy 2015 colonoscopy 2015 throat nodules 1977 Stereotactic surgeries Left breast, Righ t breast 2000 2001 Bronchoscopy 10/15/2015 eye surgery 08/04/16 Left saliva gland Hospitalization History Reason Date(Month/Year) chest pain 09/2015
--- OUTSIDE RECORDS SUMMARY | 2025-01-01 10:44 | XMS_ITS ---
[facility] Name [facility] Encounters Encounter Type Encounter Reason Primary Diagnosis Location Date Emergency medical services Syncope/Fainting - Medical Syncope / Fainting [facility] 05/14/2021
--- OUTSIDE RECORDS SUMMARY | 2025-01-01 10:44 | XMS_ITS | Patient Health Record ---
Author Organization [facility] Address [address] [place] [address] Care Team Providers Care Deodorizer Operator Name Role Phone Best Hart MD Primary Care Provider UnavailPoli Yancey [phone] Allergies Allergen (clinical drug ingredient) Drug/Non Drug Allergy documented on EMR Reaction Allergy Type Onset Date Status Sulfa Unknown Drug Allergy Active meperidine Demerol Unknown Drug Allergy Active codeine Codeine Sulfate Unknown Drug Allergy A ctive MRI dye (uncoded) Unknown Allergy Ac tive Reason For Referral No Information Medications Medication SIG (Take, Route, Frequency, Duration) Notes Start Date End Date Status Aspir-81 81 MG 1 tablet Orally Once a day Active PreserVision AREDS Orally once a day Active Vitamin D 1000 UNIT 1 capsule Orally Once a day Active Folcroft 3 1000 MG 1 capsule Orally twi ce a day Active Omeprazole 20 MG 1 capsule Orally Once a day Active Sotalol HCl 80 MG 1 tablet Orally Twice a day Active Losartan Potassium 25 MG 1 tablet Orally Once a day Active Immunizations Vaccine Route Administration Date Status Comme nts Flu vaccine no Preserv 3 and > Unknown 02/09/2015 Admin istered Problems Problem Type SNOMED Code ICD Code Onset Dates Problem Status W/U Status Risk Notes Problem [id number] Encounter for screening for malignant neoplasm of colon (Z12.11) Active confirmed Problem Screening for malignant neoplasm of rectum (578655621) Encounter for screening for malignant neoplasm of rectum (Z12.12) Active confirmed Problem [id number] Gastroesophageal reflux disease without esophagitis (K21.9) Active confirmed Plan Of Treatment Pending Test Test Name Order Date GI BIOPSY 07/23/2015 Future Test Test Name Order Date UPPER GI ENDOSCOPY 05/14/2015 COLONOSCOPY 05/14/2015 Insurance Providers Payer Name Payer Address Payer Phone Subscriber Number Group Number Insured Name Patient Relationship to Insured Coverage Start Date Coverage End Date MEDICARE OF [place] [address] [place] [id number] [phone] [id number] RUTHANN BRINK Self - patient is the insured [facility] [employer] [address] [place] [address] [id number] RUTHANN BRINK Self - patient is the insured Medical (General) History Medical History History ICD Code Colonoscopy 09-04-2005-neg. e xcept for diverticulosis and internal hemorrhoids; colonoscopy in 1997 with hyperplastic polyps Denies MA,DM,CVA,Lung disease,renal dise ase Benign breast cyst HTN GERD Right-sided breast cancer in 2006--lumpe ctomy and XRT Surgical History Surgery Date(Month/Year) pilonidal cyst section 1977 R knee 2001,2010 APPY breast cancer as above 06/12/2006 Throat nodules removed 1977 Left breast surgeries--benign disease 19 82,1988,2000
--- OUTSIDE RECORDS SUMMARY | 2025-01-01 10:44 | XMS_ITS | Clinical Summary ---
Author Organization [facility] Address [address] [place] [phone] Phone Care Team Providers Care Coil Winding Supervisor Name Role Phone Best Hart MD Primary Care Provider Social History Tobacco Use Types Packs/Day Years Used Date Smoking Tobacco: Never Assessed Comments Unknown Sex and Gender Information Value Date Recorded Sex Assigned at Female 05/23/2024 3:15 PM EST Legal Sex Female 9:45 PM EST Gender Identity Female 05/23/2024 3:15 PM EST Sexual Orientation Straight 05/23/2024 3: 15 PM EST Plan of Treatment Health Maintenance Due Date Last Done Comments DTaP,Tdap,and Td Vaccines (1 - Tdap) 1964 Cholesterol Screening (Lipid Panel) 05/13/2022 Falls Risk Assessment 05/13/2022 Hepatitis C Screening 05/13/2022 Medicare Annual Wellness Visit 05/13/2022 Osteoporosis Screening (Bone Density Screening) 05/13/2022 Social Influencers of Health Screening 05/13/2022 Hypertension/CHF/CAD Annual BMP Blood Test 05/28/2024 Depression Screening 06/11/2024 COVID-19 Vaccine ( season) 2024 04/18/2024, 03/20/2023, 05/03/2022, Additional history exists Influenza Vaccine (#1) 2025 , 02/14/2023, 03/02/2022, Additional history exists Zoster Vaccines Completed 09/29/2021, 07/07/2021 RSV Immunization Adult Patients Completed 02/14/2023 Pneumococcal Vaccine: 50+ Years Completed 04/02/2023 HIB Vaccines Aged Out No longer eligi [...] patient's age to complete this topic Meningococcal B Vaccine Aged Out No l onger eligible based on patient's age to complete this topic RSV Immunization Patients Under 20 months Aged Out No longer eligible based on patient's age to complete this topic Varicella Vaccines Aged Out No longer eligible based on patient's age to complete this topic Insurance MEDICARE [facility] Advance Directives Documents on File Type Date Recorded Patient Digital Sales Representative Expl anation Health Care Decision (hx) 02/13/2017 AD MARK DIRECTIVE Health Care Decision (hx) 02/13/2017 AD MARK DIRECTIVE Health Care Decision (hx) 02/13/2017 AD MARK DIRECTIVE Care Teams Coil Winding Supervisor Relationship Specialty Start Date End Date Best Hart MD [address] [place] [address] PCP - General Internal Medicine 11/15/12
== END 2025-01-01 10:53 | disposition home or self-care (01) ==
LOC: HO.HCS 09:58
PROVIDERS: PCP Internal Medicine; Visit Provider Internal Medicine Cardiovascular Disease
DX: I48.0 Paroxysmal atrial fibrillation (principal); Z95.0 Presence of cardiac pacemaker; I10 Essential (primary) hypertension
CPT/HCPCS: 93280; 99214; G2211

== ENCOUNTER → 2025-01-01 09:58 | Outpatient (BNVA) | payer MEDICARE, SELFPAY | PROVIDERS: PCP Internal Medicine; Visit Provider Internal Medicine Cardiovascular Disease | DX: I48.0 Paroxysmal atrial fibrillation (principal); Z95.0 Presence of cardiac pacemaker; I10 Essential (primary) hypertension | CPT/HCPCS: 93280; 99212 ==

== ENCOUNTER → 2025-03-27 23:59 | Outpatient (BNV) | payer MEDICARE, SELFPAY ==
--- NOTE | 2025-03-31 17:26 | MHC.OFFVIS ---
Intake Visit Reasons: Remote device check- Medtronic Allergies lisinopril Allergy (Intermediate, Verified 07/15/24 08:54) cough Sulfa (Sulfonamide Antibiotics) Allergy (Intermediate, Verified 07/15/24 08:54) hives/swelling trimethoprim Allergy (Intermediate, Verified 07/15/24 08:54) RASH codeine Allergy (Mild, Verified 07/15/24 08:54) HEADACHES, headache Gadolinium-Containing Contrast Medi (Gadolinium-Containing Agents) Allergy (Mild, Verified 07/15/24 08:54) 14cc of Multihance meperidine Adverse Reaction (Mild, Verified 07/15/24 08:54) NAUSEA/VOMITING Latex Gloves Allergy (Intermediate, Uncoded 07/15/24 08:54) [facility] Medical History [id number]-66 syndrome Cardiac pacemaker in situ Paroxysmal atrial fibrillation Infiltrating ductal carcinoma of right breast 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 Bronchiectasis Pulmonary nodules Incomplete RBBB Vasovagal syncope SVT (supraventricular tachycardia) HTN (hypertension) GERD (gastroesophageal reflux disease) Surgical History History of total right hip replacement (11/02/21) History of total left hip replacement (02/11/20) History of pacemaker (11/04/21) History of lumpectomy of right breast (~2006) Hx of knee surgery (~2010) Family History Father Cancer Afib Mother Cancer HOCM (hypertrophic obstructive cardiomyopathy) Social History Household Members: Family Housing: House Alcohol intake: current Alcohol intake frequency: a few times a week Alcohol type: wine Patient Tobacco Use Status: Never used Tobacco Office Procedures Cardiac Device Check Cardiac Device Check Details: Remote pacemaker report generated 03/27/2025. Pacemaker function is adequate. No episodes of atrial fibrillation noted [id number] Cardiac Device Interrogation, pacemaker Procedure code (CPT) selection complete Assessment & Plan Assessment & Plan (1) Cardiac pacemaker in situ: Comment: Dual-chamber Medtronic pacemaker placed in October of 2021 for post hip surgery sinus pause Code(s): Z95.0 - Presence of cardiac pacemaker Category: Medical Plan: See above Coding Level of Care Code Procedure Only Diagnoses Cardiac pacemaker in situ Z95.0 CPT Codes Cardiac Device Check - Cardiac Device 12: [id number] Cardiac Device Interrogation, pacemaker ([id number])
== END ==
PROVIDERS: PCP Internal Medicine; Visit Provider Internal Medicine Cardiovascular Disease
DX: I49.9 Cardiac arrhythmia, unspecified (principal); Z95.0 Presence of cardiac pacemaker
CPT/HCPCS: 93294